=== PATIENT | male | born 1965 | race Two or more races ===

== ENCOUNTER 2017-09-21 07:08 | Day surgery (SDC) | payer MEDICAID ==
[2017-09-21] VITALS (8 sets, daily range): BP systolic 91–111; BP diastolic 46–71
[~2017-09-21] VITALS: Ht 190.5 cm; Wt 148.1 kg
[~2017-09-21 07:08] MED LIST: AMOX500C2 PO; FURO-150 PO; METO-292 PO; PANT-47 PO; POTA10TA36 PO; vitamin b1 PO
[2017-09-21] MEDS ORDERED: normal saline 1000ml 1,000 ML IV PRN (07:25)
[2017-09-21] MEDS: albumin (human) 25% 100 ML IV solution IV PRN ×2 (10:35→11:12)
== END 2017-09-21 11:30 | disposition home or self-care (01) ==
LOC: SSTAY O 07:08
PROVIDERS: ATTEND Radiology Vascular & Interventional Radiology
DX: R18.8 Other ascites (principal); Z88.8 Allergy status to other drugs, medicaments and biological substances; Z79.899 Other long term (current) drug therapy
CPT/HCPCS: 49083; A6258; J7030; P9047

== ENCOUNTER 2017-09-24 19:22 | Inpatient (IN) | payer MEDICAID ==
[~2017-09-24] VITALS: Ht 190.5 cm; Wt 118.4 kg
[~2017-09-24 19:22] MED LIST changes: -AMOX500C2 PO
[2017-09-24 22:48] LABS: BASOPHILS % (AUTO) 0.5 % (0-1); EOSINOPHILS # (AUTO) 0.5 X10'3 (0-0.9); EOSINOPHILS % (AUTO) 5.5 % (0-6); HEMATOCRIT 23.9 % (42.0-52.0); LYMPHOCYTES # (AUTO) 1.5 X10'3 (1.1-4.8); LYMPHOCYTES % (AUTO) 15.5 % (21-51); MEAN CORPUSCULAR HEMOGLOBIN 33.2 PG (27.0-31.0); MEAN CORPUSCULAR HGB CONC 33.6 % (33.0-36.5); MEAN CORPUSCULAR VOLUME 98.8 FL (78-98); MEAN PLATELET VOLUME 8.3 FL (7.4-10.4); MONOCYTES # (AUTO) 0.9 X10'3 (0-0.9); MONOCYTES % (AUTO) 9.1 % (2-12); NEUTROPHILS # (AUTO) 6.5 X10'3 (1.8-7.7); NEUTROPHILS % (AUTO) 69.4 % (42-75); PLATELET COUNT 164 X10'3 (140-440); RED BLOOD COUNT 2.42 X10'6 (4.70-6.10); RED CELL DISTRIBUTION WIDTH 15.5 % (11.5-14.5); WHITE BLOOD COUNT 9.4 X10'3 (4.5-11.0)
[2017-09-24 23:06] LABS: ALANINE AMINOTRANSFERASE 25 U/L (12-78); ALBUMIN/GLOBULIN RATIO 0.4 (1.1-1.5); ALKALINE PHOSPHATASE 216 IU/L (46-116); ANION GAP 9 (8-16); ASPARTATE AMINO TRANSFERASE 33 U/L (10-37); BILIRUBIN,TOTAL 1.8 MG/DL (0.1-1.0); BLOOD UREA NITROGEN 43 MG/DL (7-18); BUN/CREATININE RATIO 25.6 (5.4-32.0); CALCIUM 8.7 MG/DL (8.5-10.1); CHLORIDE 109 MMOL/L (99-107); CREATININE 1.68 MG/DL (0.60-1.10); GLUCOSE 289 MG/DL (70-104); LIPASE 330 U/L (73-393); SODIUM 139 MMOL/L (135-145); TOTAL CARBON DIOXIDE 21.3 MMOL/L (24-32); TOTAL PROTEIN 7.2 G/DL (6.4-8.2); eGFR 43 ML/MIN
[2017-09-25] VITALS (7 sets, daily range): BP systolic 101–138; BP diastolic 54–61
[2017-09-25] MEDS ORDERED: magnesium hydroxide 30ml (MOM) UD suspension PO PRN (00:15)
[2017-09-25] MEDS ORDERED: diphenhydrAMINE 50 mg/ml inj IV PRN (00:15)
[2017-09-25] MEDS ORDERED: acetaminophen 325mg tablet PO PRN (00:15)
[2017-09-25] MEDS ORDERED: HYDROcodone/acetaminophen 10/325mg tab PO PRN (00:15)
[2017-09-25] MEDS ORDERED: diphenhydrAMINE 25mg capsule PO PRN (00:15)
[2017-09-25] MEDS ORDERED: HYDROmorphone 1 mg/ml syringe IV PRN ×2 (00:15)
[2017-09-25] MEDS ORDERED: HYDROcodone/acetaminophen 5mg/325mg tablet PO PRN (00:15)
[2017-09-25] MEDS ORDERED: mag hydrox/Alum hydrox/simeth 30ml oral suspension PO PRN (00:15)
[2017-09-25] MEDS ORDERED: acetaminophen 650mg rectal suppository RC PRN (00:15)
[2017-09-25] MEDS ORDERED: bisacodyl 10mg suppository rectal RC PRN (00:15)
[2017-09-25] MEDS ORDERED: metoclopramide 5 mg/ml inj IV PRN (00:15)
[2017-09-25] MEDS ORDERED: ondansetron/PF 4mg/2ml inj IV PRN (00:15)
[2017-09-25] MEDS ORDERED: glucagon, human recombinant 1mg kit SUBCUT PRN (00:20)
[2017-09-25] MEDS ORDERED: dextrose 50%-water 50ml dispensing syringe IV PRN ×2 (00:20)
[2017-09-25] MEDS ORDERED: dextrose ORAL solution 15 GM/59 ML bottle PO PRN ×2 (00:20)
[2017-09-25] MEDS ORDERED: MESSAGE TO PHARMACY PO ONE (00:20)
[2017-09-25 02:46] LABS: CLARITY,URINE Clear (Clear); COLOR,URINE Yellow (Yellow); GLUCOSE, URINE 100 mg/dl (Neg); KETONES,URINE Negative (Neg); LEUKOCYTE ESTERASE ,URINE Trace (Neg); NITRITES, URINE Negative (Neg); OCCULT BLOOD,URINE Trace-Intact (Neg); PROTEIN,URINE Negative (Neg)
[2017-09-25 02:48] LABS: UA COLLECTION TYPE CLN CATCH MIDSTREAM
[2017-09-25 02:55] LABS: HYALINE CASTS 0-3 /LPF (NEGATIVE); MUCUS STRANDS FEW /LPF (Neg); SQUAMOUS EPITHELIAL CELL,UR FEW /LPF (FEW)
[2017-09-25 02:56] LABS: WBC,URINE 0-4 /HPF (0-4)
[2017-09-25 02:57] LABS: BACTERIA,URINE FEW /HPF (Neg)
[2017-09-25 07:10] LABS: INR 1.3 INR; PARTIAL THROMBOPLASTIN TIME 32 SECONDS (22-32); PROTHROMBIN TIME 13.6 SECONDS (9.0-12.0)
[2017-09-25] MEDS: heparin, porcine 5000 units/ml vial SQ SCH ×2 (07:26→19:16)
[2017-09-25] MEDS: docusate sod 100mg capsule PO SCH ×2 (07:27→19:16)
[2017-09-25] MEDS ORDERED: pantoprazole 40mg Tablet.DR PO SCH (07:30)
[2017-09-25 08:01] LABS: ALBUMIN 1.7 G/DL (3.4-5.0); ANION GAP 8 (8-16); BLOOD UREA NITROGEN 41 MG/DL (7-18); BUN/CREATININE RATIO 28.3 (5.4-32.0); CALCIUM 8.5 MG/DL (8.5-10.1); CHLORIDE 112 MMOL/L (99-107); CREATININE 1.45 MG/DL (0.60-1.10); GLUCOSE 188 MG/DL (70-104); MAGNESIUM 1.8 MG/DL (1.5-2.4); PHOSPHORUS 3.7 MG/DL (2.3-4.5); SODIUM 140 MMOL/L (135-145); TOTAL CARBON DIOXIDE 19.9 MMOL/L (24-32); eGFR 51 ML/MIN
[2017-09-25 08:58] LABS: HEMOGLOBIN A1C 6.9 % (4.5-6.2)
[2017-09-25] MEDS ORDERED: potassium Cl 40MEQ/NS 500ml 500 ML IV PRN ×2 (12:30)
[2017-09-25] MEDS ORDERED: magnesium Cl slow-release 64mg tablet PO PRN (12:30)
[2017-09-25] MEDS: K and/or MAG REPLACEMENT MC SCH (12:30)
[2017-09-25] MEDS ORDERED: magnesium 2GM in 50ml NS 50 ML IV PRN (12:30)
[2017-09-25] MEDS ORDERED: magnesium 4gm in 100ml NS 100 ML IV PRN (12:30)
[2017-09-25] MEDS ORDERED: potassium Cl 20 mEq SR tablet PO PRN ×2 (12:30)
[2017-09-25 12:45] LABS: ALBUMIN 1.6 G/DL (3.4-5.0); ANION GAP 6 (8-16); BLOOD UREA NITROGEN 39 MG/DL (7-18); BUN/CREATININE RATIO 29.1 (5.4-32.0); CALCIUM 8.3 MG/DL (8.5-10.1); CHLORIDE 111 MMOL/L (99-107); CREATININE 1.34 MG/DL (0.60-1.10); GLUCOSE 206 MG/DL (70-104); PHOSPHORUS 3.8 MG/DL (2.3-4.5); POTASSIUM 5.1 MMOL/L (3.5-5.1); SODIUM 139 MMOL/L (135-145); TOTAL CARBON DIOXIDE 21.6 MMOL/L (24-32); eGFR 56 ML/MIN
[2017-09-25] MEDS: albumin (human) 25% 100 ML IV solution IV SCH (13:53)
[2017-09-25] MEDS: furosemide 40mg/4ml inj IV SCH ×2 (13:54→19:16)
[2017-09-25] MEDS: fluconazole 100mg tablet PO SCH (13:54)
[2017-09-25] MEDS: metoclopramide 10mg tablet PO SCH (17:04)
[2017-09-25] MEDS: insulin Lispro (HumaLOG) vial - multi-dose SQ SCH (19:15)
[2017-09-25 19:39] LABS: ALBUMIN 2.2 G/DL (3.4-5.0); ANION GAP 8 (8-16); BLOOD UREA NITROGEN 36 MG/DL (7-18); BUN/CREATININE RATIO 26.3 (5.4-32.0); CALCIUM 8.6 MG/DL (8.5-10.1); CHLORIDE 109 MMOL/L (99-107); CREATININE 1.37 MG/DL (0.60-1.10); GLUCOSE 224 MG/DL (70-104); PHOSPHORUS 3.8 MG/DL (2.3-4.5); POTASSIUM 4.7 MMOL/L (3.5-5.1); SODIUM 137 MMOL/L (135-145); TOTAL CARBON DIOXIDE 20.2 MMOL/L (24-32); eGFR 54 ML/MIN
[2017-09-25] MEDS ORDERED: temazepam 15mg capsule PO PRN (21:00)
[2017-09-26] VITALS (13 sets, daily range): BP systolic 103–122; BP diastolic 54–71
[2017-09-26] MEDS: metoclopramide 10mg tablet PO SCH ×4 (00:13→23:54)
[2017-09-26 07:20] LABS: BASOPHILS # (AUTO) 0.1 X10'3 (0-0.2); BASOPHILS % (AUTO) 0.6 % (0-1); EOSINOPHILS # (AUTO) 0.5 X10'3 (0-0.9); EOSINOPHILS % (AUTO) 5.9 % (0-6); LYMPHOCYTES % (AUTO) 21.4 % (21-51); MEAN CORPUSCULAR HEMOGLOBIN 33.1 PG (27.0-31.0); MEAN CORPUSCULAR HGB CONC 33.3 % (33.0-36.5); MEAN CORPUSCULAR VOLUME 99.3 FL (78-98); MEAN PLATELET VOLUME 8.3 FL (7.4-10.4); MONOCYTES # (AUTO) 0.8 X10'3 (0-0.9); NEUTROPHILS # (AUTO) 5.8 X10'3 (1.8-7.7); NEUTROPHILS % (AUTO) 63.1 % (42-75); PLATELET COUNT 142 X10'3 (140-440); RED BLOOD COUNT 2.04 X10'6 (4.70-6.10); RED CELL DISTRIBUTION WIDTH 15.8 % (11.5-14.5); WHITE BLOOD COUNT 9.2 X10'3 (4.5-11.0)
[2017-09-26 07:24] LABS: HEMATOCRIT 20.2 % (42.0-52.0); HEMOGLOBIN 6.7 g/dl (14.0-17.9)
[2017-09-26 07:40] LABS: ALANINE AMINOTRANSFERASE 22 U/L (12-78); ALBUMIN/GLOBULIN RATIO 0.4 (1.1-1.5); ALKALINE PHOSPHATASE 179 IU/L (46-116); ANION GAP 8 (8-16); ASPARTATE AMINO TRANSFERASE 29 U/L (10-37); BILIRUBIN,TOTAL 2.2 MG/DL (0.1-1.0); BLOOD UREA NITROGEN 34 MG/DL (7-18); BUN/CREATININE RATIO 25.2 (5.4-32.0); CALCIUM 8.5 MG/DL (8.5-10.1); CHLORIDE 109 MMOL/L (99-107); CREATININE 1.35 MG/DL (0.60-1.10); GLUCOSE 162 MG/DL (70-104); MAGNESIUM 1.7 MG/DL (1.5-2.4); POTASSIUM 4.7 MMOL/L (3.5-5.1); SODIUM 138 MMOL/L (135-145); TOTAL CARBON DIOXIDE 21.1 MMOL/L (24-32); TOTAL PROTEIN 6.6 G/DL (6.4-8.2); eGFR 55 ML/MIN
[2017-09-26] MEDS: K and/or MAG REPLACEMENT MC SCH (07:48)
[2017-09-26] MEDS: furosemide 40mg/4ml inj IV SCH ×2 (07:56→19:36)
[2017-09-26] MEDS: heparin, porcine 5000 units/ml vial SQ SCH ×3 (07:57→19:37)
[2017-09-26] MEDS: fluconazole 100mg tablet PO SCH (07:57)
[2017-09-26] MEDS: docusate sod 100mg capsule PO SCH ×2 (08:00→19:36)
[2017-09-26] MEDS: albumin (human) 25% 100 ML IV solution IV SCH (08:05)
[2017-09-26] MEDS: pantoprazole 40mg Tablet.DR PO SCH (08:06)
[2017-09-26] MEDS: insulin Lispro (HumaLOG) vial - multi-dose SQ SCH ×3 (09:33→19:44)
[2017-09-27 05:00] VITALS: BP 108/41
[2017-09-27 06:24] LABS: BASOPHILS # (AUTO) 0.1 X10'3 (0-0.2); BASOPHILS % (AUTO) 0.9 % (0-1); EOSINOPHILS # (AUTO) 0.4 X10'3 (0-0.9); EOSINOPHILS % (AUTO) 4.5 % (0-6); HEMATOCRIT 23.4 % (42.0-52.0); LYMPHOCYTES # (AUTO) 2.1 X10'3 (1.1-4.8); LYMPHOCYTES % (AUTO) 21.1 % (21-51); MEAN CORPUSCULAR HEMOGLOBIN 32.8 PG (27.0-31.0); MEAN CORPUSCULAR HGB CONC 34.2 % (33.0-36.5); MEAN CORPUSCULAR VOLUME 95.9 FL (78-98); MONOCYTES # (AUTO) 0.9 X10'3 (0-0.9); MONOCYTES % (AUTO) 9.7 % (2-12); NEUTROPHILS # (AUTO) 6.2 X10'3 (1.8-7.7); NEUTROPHILS % (AUTO) 63.8 % (42-75); PLATELET COUNT 137 X10'3 (140-440); RED BLOOD COUNT 2.44 X10'6 (4.70-6.10); RED CELL DISTRIBUTION WIDTH 16.7 % (11.5-14.5); WHITE BLOOD COUNT 9.8 X10'3 (4.5-11.0)
[2017-09-27 07:14] LABS: ALANINE AMINOTRANSFERASE 16 U/L (12-78); ALBUMIN 2.2 G/DL (3.4-5.0); ALBUMIN/GLOBULIN RATIO 0.5 (1.1-1.5); ALKALINE PHOSPHATASE 162 IU/L (46-116); ANION GAP 7 (8-16); ASPARTATE AMINO TRANSFERASE 28 U/L (10-37); BILIRUBIN,TOTAL 3.1 MG/DL (0.1-1.0); BLOOD UREA NITROGEN 31 MG/DL (7-18); BUN/CREATININE RATIO 24.4 (5.4-32.0); CALCIUM 8.3 MG/DL (8.5-10.1); CHLORIDE 109 MMOL/L (99-107); CREATININE 1.27 MG/DL (0.60-1.10); GLUCOSE 155 MG/DL (70-104); MAGNESIUM 1.7 MG/DL (1.5-2.4); POTASSIUM 4.3 MMOL/L (3.5-5.1); SODIUM 138 MMOL/L (135-145); TOTAL PROTEIN 6.4 G/DL (6.4-8.2); eGFR 59 ML/MIN
[2017-09-27] MEDS: K and/or MAG REPLACEMENT MC SCH (07:24)
[2017-09-27] MEDS: metoclopramide 10mg tablet PO SCH ×2 (07:29→15:23)
[2017-09-27] MEDS: docusate sod 100mg capsule PO SCH ×2 (07:29→19:12)
[2017-09-27] MEDS: furosemide 40mg/4ml inj IV SCH ×2 (07:29→19:14)
[2017-09-27] MEDS: fluconazole 100mg tablet PO SCH (07:29)
[2017-09-27] MEDS: pantoprazole 40mg Tablet.DR PO SCH (07:29)
[2017-09-27] MEDS: heparin, porcine 5000 units/ml vial SQ SCH ×2 (07:31→19:14)
[2017-09-27] MEDS: insulin Lispro (HumaLOG) vial - multi-dose SQ SCH ×3 (09:31→19:11)
[2017-09-27 10:00] VITALS: BP 110/52
[2017-09-27 10:10] VITALS: BP 126/71
[2017-09-27 10:39] VITALS: BP 94/43
[2017-09-27 18:00] VITALS: BP 113/58
[2017-09-27 22:00] VITALS: BP 112/58
[2017-09-28] MEDS: metoclopramide 10mg tablet PO SCH ×3 (00:12→15:17)
[2017-09-28 04:05] LABS: OCCULT BLOOD STOOL NEGATIVE (Neg)
[2017-09-28 06:00] VITALS: BP 103/55
[2017-09-28 06:44] LABS: BASOPHILS # (AUTO) 0.1 X10'3 (0-0.2); BASOPHILS % (AUTO) 0.8 % (0-1); EOSINOPHILS # (AUTO) 0.4 X10'3 (0-0.9); EOSINOPHILS % (AUTO) 3.6 % (0-6); HEMATOCRIT 24.4 % (42.0-52.0); HEMOGLOBIN 8.2 g/dl (14.0-17.9); LYMPHOCYTES # (AUTO) 2.5 X10'3 (1.1-4.8); LYMPHOCYTES % (AUTO) 24.8 % (21-51); MEAN CORPUSCULAR HEMOGLOBIN 32.4 PG (27.0-31.0); MEAN CORPUSCULAR HGB CONC 33.5 % (33.0-36.5); MEAN CORPUSCULAR VOLUME 96.8 FL (78-98); MEAN PLATELET VOLUME 8.2 FL (7.4-10.4); MONOCYTES # (AUTO) 1.4 X10'3 (0-0.9); MONOCYTES % (AUTO) 13.8 % (2-12); NEUTROPHILS # (AUTO) 5.8 X10'3 (1.8-7.7); PLATELET COUNT 143 X10'3 (140-440); RED BLOOD COUNT 2.52 X10'6 (4.70-6.10); RED CELL DISTRIBUTION WIDTH 16.8 % (11.5-14.5); WHITE BLOOD COUNT 10.2 X10'3 (4.5-11.0)
[2017-09-28] MEDS: fluconazole 100mg tablet PO SCH (07:18)
[2017-09-28] MEDS: docusate sod 100mg capsule PO SCH (07:18)
[2017-09-28] MEDS: pantoprazole 40mg Tablet.DR PO SCH (07:18)
[2017-09-28] MEDS: heparin, porcine 5000 units/ml vial SQ SCH (07:19)
[2017-09-28] MEDS: furosemide 40mg/4ml inj IV SCH (07:19)
[2017-09-28] MEDS: K and/or MAG REPLACEMENT MC SCH (08:00)
[2017-09-28 08:13] LABS: ALANINE AMINOTRANSFERASE 20 U/L (12-78); ALBUMIN 1.9 G/DL (3.4-5.0); ALBUMIN/GLOBULIN RATIO 0.5 (1.1-1.5); ALKALINE PHOSPHATASE 152 IU/L (46-116); ANION GAP 9 (8-16); ASPARTATE AMINO TRANSFERASE 29 U/L (10-37); BILIRUBIN,TOTAL 2.4 MG/DL (0.1-1.0); BLOOD UREA NITROGEN 27 MG/DL (7-18); BUN/CREATININE RATIO 20.3 (5.4-32.0); CHLORIDE 109 MMOL/L (99-107); CREATININE 1.33 MG/DL (0.60-1.10); GLUCOSE 123 MG/DL (70-104); MAGNESIUM 1.5 MG/DL (1.5-2.4); SODIUM 139 MMOL/L (135-145); TOTAL CARBON DIOXIDE 21.5 MMOL/L (24-32); eGFR 56 ML/MIN
[2017-09-28] MEDS: insulin Lispro (HumaLOG) vial - multi-dose SQ SCH ×2 (08:59→13:25)
[2017-09-28 10:30] VITALS: BP 106/59
[2017-09-28] MEDS ORDERED: FURO40TA4 PO (16:12)
[2017-09-28] MEDS ORDERED: POTA20TA19 PO (16:12)
== END 2017-09-28 18:00 | disposition home or self-care (01) ==
LOC: ER 19:23 → ED HOLD 09-25 00:11 → EDBEDREQ 09-25 00:57 → ORTHO 4S 09-25 01:25
PROVIDERS: ADMIT Family Medicine; ATTEND Family Medicine
PROC: 30233N1 Transfusion of Nonautologous Red Blood Cells into Peripheral Vein, Percutaneous Approach (ICD-10-PCS; 2017-09-26)
PROC: 0W9G3ZZ Drainage of Peritoneal Cavity, Percutaneous Approach (ICD-10-PCS; principal; 2017-09-27)
DX: K74.60 Unspecified cirrhosis of liver (principal); E43 Unspecified severe protein-calorie malnutrition; N17.9 Acute kidney failure, unspecified; R18.8 Other ascites; E11.22 Type 2 diabetes mellitus with diabetic chronic kidney disease; K72.90 Hepatic failure, unspecified without coma; E88.09 Other disorders of plasma-protein metabolism, not elsewhere classified; E11.65 Type 2 diabetes mellitus with hyperglycemia; R60.1 Generalized edema; D64.9 Anemia, unspecified; L30.8 Other specified dermatitis; D63.1 Anemia in chronic kidney disease; F10.10 Alcohol abuse, uncomplicated; I12.9 Hypertensive chronic kidney disease with stage 1 through stage 4 chronic kidney disease, or unspecified chronic kidney disease; L30.9 Dermatitis, unspecified; N18.9 Chronic kidney disease, unspecified; N50.89 Other specified disorders of the male genital organs; Z59.0 Homelessness; Z87.891 Personal history of nicotine dependence; Z90.49 Acquired absence of other specified parts of digestive tract; Z88.8 Allergy status to other drugs, medicaments and biological substances
CPT/HCPCS: 36415; 49083; 76870; 80053; 80069; 81001; 82272; 82948; 83036; 83690; 83735; 83880; 85025; 85610; 85730; 86885; 86900; 86901; 86920; 87070; 87088; 97116; 97162; 97530; 99285; A4315; J1644; J1940; J2270; J7030; J8597; P9016; P9047

== ENCOUNTER 2017-10-05 07:23 | Day surgery (SDC) | payer MEDICAID ==
[~2017-10-05] VITALS: Ht 190.5 cm; Wt 145.8 kg
[2017-10-05] VITALS (9 sets, daily range): BP systolic 86–109; BP diastolic 36–64
[~2017-10-05 07:23] MED LIST changes: -FURO-150 PO; +FURO40TA4 PO; +LIDOcaine 1% 30ml vial SQ STA; +POTA20TA19 PO
[2017-10-05] MEDS ORDERED: normal saline 1000ml 1,000 ML IV PRN (07:40)
[2017-10-05] MEDS ORDERED: FURO40TA4 PO (08:23)
[2017-10-05] MEDS ORDERED: POTA10CA44 PO (08:23)
[2017-10-05] MEDS: albumin (human) 25% 100 ML IV solution IV PRN ×2 (09:13→09:53)
== END 2017-10-05 11:35 | disposition home or self-care (01) ==
LOC: SSTAY O 07:23
PROVIDERS: ATTEND Radiology Vascular & Interventional Radiology
DX: K74.69 Other cirrhosis of liver (principal); R18.8 Other ascites; Z79.899 Other long term (current) drug therapy; E11.9 Type 2 diabetes mellitus without complications; I10 Essential (primary) hypertension; Z90.49 Acquired absence of other specified parts of digestive tract; Z87.891 Personal history of nicotine dependence; Z88.1 Allergy status to other antibiotic agents
CPT/HCPCS: 49083; A6257; J3490; J7030; P9047

== ENCOUNTER 2017-10-11 07:54 | Day surgery (SDC) | payer MEDICAID ==
[~2017-10-11] VITALS: Ht 190.5 cm; Wt 146.1 kg
[2017-10-11] VITALS (8 sets, daily range): BP systolic 97–123; BP diastolic 43–69
[~2017-10-11 07:54] MED LIST changes: +POTA10CA44 PO; -POTA10TA36 PO; -POTA20TA19 PO; -vitamin b1 PO
[2017-10-11] MEDS ORDERED: normal saline 1000ml 1,000 ML IV PRN (08:40)
[2017-10-11] MEDS: albumin (human) 25% 100 ML IV solution IV PRN ×2 (09:00→09:23)
== END 2017-10-11 10:20 | disposition home or self-care (01) ==
LOC: SSTAY O 07:54
PROVIDERS: ATTEND Radiology Diagnostic Radiology
DX: K70.31 Alcoholic cirrhosis of liver with ascites (principal); E11.9 Type 2 diabetes mellitus without complications; I10 Essential (primary) hypertension; G89.29 Other chronic pain; F10.21 Alcohol dependence, in remission; F15.21 Other stimulant dependence, in remission; Z90.49 Acquired absence of other specified parts of digestive tract; Z87.891 Personal history of nicotine dependence; Z98.890 Other specified postprocedural states; Z79.84 Long term (current) use of oral hypoglycemic drugs; Z79.4 Long term (current) use of insulin; Z88.1 Allergy status to other antibiotic agents
CPT/HCPCS: 49083; A6257; J3490; J7030; P9047

== ENCOUNTER 2017-10-18 07:55 | Day surgery (SDC) | payer MEDICAID ==
[2017-10-18] VITALS (11 sets, daily range): BP systolic 99–115; BP diastolic 48–69
[~2017-10-18] VITALS: Ht 190.5 cm; Wt 142.2 kg
[~2017-10-18 07:55] MED LIST changes: -LIDOcaine 1% 30ml vial SQ STA
[2017-10-18] MEDS ORDERED: LIDOcaine 1% 30ml vial SQ STA (08:07)
[2017-10-18] MEDS ORDERED: normal saline 1000ml 1,000 ML IV PRN (08:25)
[2017-10-18] MEDS: albumin (human) 25% 100 ML IV solution IV PRN ×3 (08:33→09:41)
== END 2017-10-18 10:32 | disposition home or self-care (01) ==
LOC: SSTAY O 07:55
PROVIDERS: ATTEND Radiology Diagnostic Radiology
DX: K74.60 Unspecified cirrhosis of liver (principal); Z88.1 Allergy status to other antibiotic agents; I10 Essential (primary) hypertension; E11.9 Type 2 diabetes mellitus without complications; F10.21 Alcohol dependence, in remission; Z98.890 Other specified postprocedural states; Z87.891 Personal history of nicotine dependence; Z79.899 Other long term (current) drug therapy
CPT/HCPCS: 49083; A6257; J3490; J7030; P9047

== ENCOUNTER 2017-11-07 08:26 | Day surgery (SDC) | payer MEDICAID ==
[~2017-11-07] VITALS: Ht 190.5 cm; Wt 123.7 kg
[2017-11-07] VITALS (11 sets, daily range): BP systolic 92–134; BP diastolic 49–72
[2017-11-07] MEDS ORDERED: LIDOcaine 1% 30ml vial SQ ONE (08:45)
[2017-11-07] MEDS ORDERED: normal saline 1000ml 1,000 ML IV PRN (08:50)
[2017-11-07] MEDS: albumin (human) 25% 100 ML IV solution IV PRN ×2 (10:16→10:33)
== END 2017-11-07 11:20 | disposition home or self-care (01) ==
LOC: SSTAY O 08:26
PROVIDERS: ATTEND Radiology Diagnostic Radiology
DX: R18.8 Other ascites (principal); K74.60 Unspecified cirrhosis of liver; F10.21 Alcohol dependence, in remission; I10 Essential (primary) hypertension; G89.29 Other chronic pain; E11.42 Type 2 diabetes mellitus with diabetic polyneuropathy; F15.21 Other stimulant dependence, in remission; Z90.49 Acquired absence of other specified parts of digestive tract; Z88.3 Allergy status to other anti-infective agents; Z79.4 Long term (current) use of insulin; Z87.891 Personal history of nicotine dependence; Z98.890 Other specified postprocedural states; Z79.899 Other long term (current) drug therapy
CPT/HCPCS: 49083; A6257; J3490; J7030; P9047

== ENCOUNTER 2017-11-14 07:48 | Day surgery (SDC) | payer MEDICAID ==
[~2017-11-14] VITALS: Ht 190.5 cm; Wt 123.1 kg
[2017-11-14] VITALS (9 sets, daily range): BP systolic 74–137; BP diastolic 35–58
[2017-11-14] MEDS ORDERED: normal saline 1000ml 1,000 ML IV PRN (08:20)
[2017-11-14] MEDS ORDERED: albumin (human) 25% 100 ML IV solution IV PRN (08:20)
[2017-11-14] MEDS ORDERED: THIA100T70 PO (08:41)
[2017-11-14] MEDS ORDERED: GLYB5TAB7 PO ×2 (08:43→21:12)
[2017-11-14] MEDS ORDERED: FURO-150 PO (21:12)
[2017-11-14] MEDS ORDERED: ONDA4TAB9 SL (21:12)
[2017-11-14] MEDS ORDERED: POTA-82 PO (21:12)
[2017-11-14] MEDS ORDERED: AMOX500C2 PO (21:12)
== END 2017-11-14 10:50 | disposition home or self-care (01) ==
LOC: SSTAY O 07:48
PROVIDERS: ATTEND Radiology Diagnostic Radiology
DX: R18.8 Other ascites (principal); K74.60 Unspecified cirrhosis of liver; I10 Essential (primary) hypertension; Z88.1 Allergy status to other antibiotic agents; Z72.89 Other problems related to lifestyle; Z90.49 Acquired absence of other specified parts of digestive tract; Z87.891 Personal history of nicotine dependence; Z79.899 Other long term (current) drug therapy
CPT/HCPCS: 49083; 82948; A6257; J7030; P9047

== ENCOUNTER 2017-11-14 14:32 | Inpatient (IN) | payer MEDICAID ==
[~2017-11-14] VITALS: Ht 190.5 cm; Wt 123.1 kg
[2017-11-14] VITALS (8 sets, daily range): BP systolic 94–107; BP diastolic 46–60
[~2017-11-14 14:32] MED LIST changes: +GLYB5TAB7 PO; +THIA100T70 PO
[2017-11-14] MEDS ORDERED: normal saline 1000ML IV soln IVB ONE ×2 (15:25→21:45)
[2017-11-14 15:45] LABS: MEAN CORPUSCULAR HEMOGLOBIN 31.4 PG (27.0-31.0); MEAN CORPUSCULAR HGB CONC 33.4 % (33.0-36.5); MEAN PLATELET VOLUME 8.3 FL (7.4-10.4); PLATELET COUNT 147 X10'3 (140-440); RED BLOOD COUNT 2.14 X10'6 (4.70-6.10); WHITE BLOOD COUNT 21.9 X10'3 (4.5-11.0)
[2017-11-14 15:54] LABS: INR 1.5 INR; PROTHROMBIN TIME 15.4 SECONDS (9.0-12.0)
[2017-11-14 15:59] LABS: HEMATOCRIT 20.1 % (42.0-52.0); HEMOGLOBIN 6.7 g/dl (14.0-17.9)
[2017-11-14 16:00] LABS: ALANINE AMINOTRANSFERASE 13 U/L (12-78); ALBUMIN 1.8 G/DL (3.4-5.0); ALBUMIN/GLOBULIN RATIO 0.4 (1.1-1.5); ALKALINE PHOSPHATASE 233 IU/L (46-116); ANION GAP 13 (8-16); ASPARTATE AMINO TRANSFERASE 24 U/L (10-37); BILIRUBIN,TOTAL 1.3 MG/DL (0.1-1.0); BLOOD UREA NITROGEN 95 MG/DL (7-18); BUN/CREATININE RATIO 22.4 (5.4-32.0); CALCIUM 8.5 MG/DL (8.5-10.1); CHLORIDE 101 MMOL/L (99-107); CREATININE 4.25 MG/DL (0.60-1.10); ETHANOL < 0.010 GM/DL (0.0-0.010); GLUCOSE 193 MG/DL (70-104); SODIUM 131 MMOL/L (135-145); TOTAL CARBON DIOXIDE 17.3 MMOL/L (24-32); TOTAL PROTEIN 6.3 G/DL (6.4-8.2); eGFR 15 ML/MIN
[2017-11-14 16:02] LABS: POTASSIUM 7.3 MMOL/L (3.5-5.1)
[2017-11-14 16:11] LABS: PLATELET ESTIMATE NORMAL; TOTAL CELLS COUNTED 100
[2017-11-14 16:17] LABS: ANISOCYTOSIS 1+
[2017-11-14] MEDS ORDERED: calcium gluconate inj. 1 GM in normal saline 100ml IV soln 100 ML IV ONE (16:25)
[2017-11-14] MEDS ORDERED: sodium polystyrene sulfonate 15gm/60ml oral suspension PO ONE (16:25)
[2017-11-14] MEDS ORDERED: insulin regular, human 10 units/0.1 ml syringe IV ONE (16:25)
[2017-11-14] MEDS ORDERED: dextrose 50%-water 50ml dispensing syringe IV ONE (16:25)
[2017-11-14] MEDS ORDERED: lactulose 20gm/30ml cup PO ONE (16:25)
[2017-11-14 16:37] LABS: BURR CELLS 2+
[2017-11-14 16:43] LABS: TARGET CELLS FEW; TOXIC GRANULATION 1+; TOXIC VACUOLATION FEW
[2017-11-14 18:22] LABS: POTASSIUM 6.7 MMOL/L (3.5-5.1)
[2017-11-14 21:10] LABS: CLARITY,URINE CLEAR (Clear); COLOR,URINE YELLOW (Yellow); GLUCOSE, URINE NEGATIVE (Neg); KETONES,URINE TRACE mg/dl (Neg); LEUKOCYTE ESTERASE ,URINE NEGATIVE (Neg); NITRITES, URINE NEGATIVE (Neg); OCCULT BLOOD,URINE TRACE-INTACT (Neg); PROTEIN,URINE NEGATIVE (Neg); UROBILINOGEN,URINE 0.2 E.U/dL (0.2-1.0)
[2017-11-14 21:12] LABS: UA COLLECTION TYPE FOLEY CATH
[2017-11-14] MEDS ORDERED: FURO-150 PO (21:12)
[2017-11-14] MEDS ORDERED: ONDA4TAB9 SL (21:12)
[2017-11-14] MEDS ORDERED: AMOX500C2 PO (21:12)
[2017-11-14] MEDS ORDERED: POTA-82 PO (21:12)
[2017-11-14] MEDS ORDERED: GLYB5TAB7 PO (21:12)
[2017-11-14 21:20] LABS: AMORPHOUS URATES 1+; HYALINE CASTS 0-3 /LPF (NEGATIVE); MUCUS STRANDS FEW /LPF (Neg); RBC,URINE 0-2 /HPF (0-2); URINE AMPHETAMINE SCREEN NEGATIVE (Neg); URINE BARBITUATE SCREEN NEGATIVE (Neg); URINE BENZODIAZEPINES SCREEN NEGATIVE (Neg); URINE CANNABINOID SCREEN NEGATIVE (Neg); URINE COCAINE SCREEN NEGATIVE (Neg); URINE METHADONE SCREEN NEGATIVE (Neg); URINE OPIATE SCREEN NEGATIVE (Neg); URINE PHENCYCLIDINE SCREEN NEGATIVE (Neg); WBC,URINE 0-4 /HPF (0-4)
[2017-11-14 21:21] LABS: BACTERIA,URINE FEW /HPF (Neg)
[2017-11-14 21:22] LABS: SQUAMOUS EPITHELIAL CELL,UR NONE SEEN /LPF (FEW)
[2017-11-14] MEDS ORDERED: cefepime 2g/NS 100ml ADVANTAGE 100 ML IV SCH (21:24)
[2017-11-15] VITALS (7 sets, daily range): BP systolic 104–119; BP diastolic 48–56
[2017-11-15] MEDS ORDERED: lactulose 20gm/30ml cup PO ONE (01:20)
[2017-11-15] MEDS ORDERED: mag hydrox/Alum hydrox/simeth 30ml oral suspension PO PRN (02:05)
[2017-11-15] MEDS ORDERED: magnesium hydroxide 30ml (MOM) UD suspension PO PRN (02:05)
[2017-11-15] MEDS: ondansetron/PF 4mg/2ml inj IV PRN (03:08)
[2017-11-15 04:37] LABS: BASOPHILS # (AUTO) 0.1 X10'3 (0-0.2); BASOPHILS % (AUTO) 0.5 % (0-1); EOSINOPHILS % (AUTO) 0 % (0-6); HEMATOCRIT 23.4 % (42.0-52.0); HEMOGLOBIN 8.1 g/dl (14.0-17.9); LYMPHOCYTES # (AUTO) 1.8 X10'3 (1.1-4.8); LYMPHOCYTES % (AUTO) 9.2 % (21-51); MEAN CORPUSCULAR HEMOGLOBIN 30.7 PG (27.0-31.0); MEAN CORPUSCULAR HGB CONC 34.6 % (33.0-36.5); MEAN CORPUSCULAR VOLUME 88.6 FL (78-98); MEAN PLATELET VOLUME 8.1 FL (7.4-10.4); MONOCYTES # (AUTO) 2.2 X10'3 (0-0.9); NEUTROPHILS # (AUTO) 15.8 X10'3 (1.8-7.7); NEUTROPHILS % (AUTO) 79.3 % (42-75); PLATELET COUNT 149 X10'3 (140-440); RED BLOOD COUNT 2.64 X10'6 (4.70-6.10); RED CELL DISTRIBUTION WIDTH 18.7 % (11.5-14.5); WHITE BLOOD COUNT 19.9 X10'3 (4.5-11.0)
[2017-11-15 04:53] LABS: ALANINE AMINOTRANSFERASE 14 U/L (12-78); ALBUMIN 1.7 G/DL (3.4-5.0); ALBUMIN/GLOBULIN RATIO 0.4 (1.1-1.5); ALKALINE PHOSPHATASE 219 IU/L (46-116); ANION GAP 16 (8-16); ASPARTATE AMINO TRANSFERASE 21 U/L (10-37); BILIRUBIN,TOTAL 2.8 MG/DL (0.1-1.0); BLOOD UREA NITROGEN 91 MG/DL (7-18); BUN/CREATININE RATIO 25.1 (5.4-32.0); CHLORIDE 105 MMOL/L (99-107); CREATININE 3.62 MG/DL (0.60-1.10); GLUCOSE 157 MG/DL (70-104); POTASSIUM 5.9 MMOL/L (3.5-5.1); SODIUM 136 MMOL/L (135-145); TOTAL CARBON DIOXIDE 15.1 MMOL/L (24-32); eGFR 18 ML/MIN
[2017-11-15] MEDS: normal saline 1000ml 1,000 ML IV SCH ×2 (05:43→15:32)
[2017-11-15] MEDS: lactobacillus rhamnosus 10,000 MMU CELLS/CAPSULE PO SCH ×3 (07:30→17:18)
[2017-11-15] MEDS: lactulose 20gm/30ml cup PO SCH ×3 (08:49→21:19)
[2017-11-15] MEDS: cefepime 1GM/NS ADD-VANTAGE 100 ML IV SCH (08:50)
[2017-11-15] MEDS: albumin (human) 25% 100 ML IV solution IV SCH ×2 (08:51→16:00)
[2017-11-15] MEDS ORDERED: sodium polystyrene sulfonate 15gm/60ml oral suspension PO ONE (09:10)
[2017-11-15] MEDS ORDERED: albumin (human) 25% 100 ML IV solution IV SCH (17:28)
[2017-11-15 18:37] LABS: BASOPHILS # (AUTO) 0.1 X10'3 (0-0.2); BASOPHILS % (AUTO) 0.4 % (0-1); EOSINOPHILS # (AUTO) 0.1 X10'3 (0-0.9); EOSINOPHILS % (AUTO) 0.9 % (0-6); HEMOGLOBIN 7.6 g/dl (14.0-17.9); LYMPHOCYTES # (AUTO) 1.8 X10'3 (1.1-4.8); LYMPHOCYTES % (AUTO) 12.7 % (21-51); MEAN CORPUSCULAR HEMOGLOBIN 31.2 PG (27.0-31.0); MEAN CORPUSCULAR HGB CONC 35.1 % (33.0-36.5); MEAN CORPUSCULAR VOLUME 88.9 FL (78-98); MEAN PLATELET VOLUME 8.2 FL (7.4-10.4); MONOCYTES # (AUTO) 1.8 X10'3 (0-0.9); MONOCYTES % (AUTO) 12.7 % (2-12); NEUTROPHILS # (AUTO) 10.2 X10'3 (1.8-7.7); NEUTROPHILS % (AUTO) 73.3 % (42-75); PLATELET COUNT 129 X10'3 (140-440); RED BLOOD COUNT 2.44 X10'6 (4.70-6.10); RED CELL DISTRIBUTION WIDTH 17.2 % (11.5-14.5)
[2017-11-15 18:41] LABS: HEMATOCRIT 21.6 % (42.0-52.0)
[2017-11-15 19:08] LABS: SODIUM,URINE RANDOM < 15 MEQ/L
[2017-11-16] VITALS (13 sets, daily range): BP systolic 96–131; BP diastolic 49–68
[2017-11-16] MEDS: albumin (human) 25% 100 ML IV solution IV SCH ×2 (00:21→10:16)
[2017-11-16] MEDS: normal saline 1000ml 1,000 ML IV SCH (01:31)
[2017-11-16] MEDS: lactulose 20gm/30ml cup PO SCH ×4 (02:45→21:01)
[2017-11-16 04:05] LABS: OCCULT BLOOD STOOL NEGATIVE (Neg)
[2017-11-16 05:21] LABS: BASOPHILS # (AUTO) 0.1 X10'3 (0-0.2); BASOPHILS % (AUTO) 0.5 % (0-1); EOSINOPHILS # (AUTO) 0.2 X10'3 (0-0.9); HEMOGLOBIN 7.1 g/dl (14.0-17.9); LYMPHOCYTES # (AUTO) 1.8 X10'3 (1.1-4.8); LYMPHOCYTES % (AUTO) 18.1 % (21-51); MEAN CORPUSCULAR HEMOGLOBIN 30.5 PG (27.0-31.0); MEAN CORPUSCULAR HGB CONC 34.1 % (33.0-36.5); MEAN CORPUSCULAR VOLUME 89.6 FL (78-98); MEAN PLATELET VOLUME 7.8 FL (7.4-10.4); MONOCYTES # (AUTO) 1.4 X10'3 (0-0.9); MONOCYTES % (AUTO) 13.6 % (2-12); NEUTROPHILS # (AUTO) 6.7 X10'3 (1.8-7.7); NEUTROPHILS % (AUTO) 65.8 % (42-75); PLATELET COUNT 122 X10'3 (140-440); RED BLOOD COUNT 2.32 X10'6 (4.70-6.10); RED CELL DISTRIBUTION WIDTH 18.4 % (11.5-14.5); WHITE BLOOD COUNT 10.1 X10'3 (4.5-11.0)
[2017-11-16 05:48] LABS: HEMATOCRIT 20.8 % (42.0-52.0)
[2017-11-16 06:05] LABS: ALANINE AMINOTRANSFERASE 20 U/L (12-78); ALBUMIN 2.9 G/DL (3.4-5.0); ALBUMIN/GLOBULIN RATIO 0.8 (1.1-1.5); ALKALINE PHOSPHATASE 165 IU/L (46-116); ANION GAP 14 (8-16); ASPARTATE AMINO TRANSFERASE 21 U/L (10-37); BILIRUBIN,TOTAL 2.1 MG/DL (0.1-1.0); BLOOD UREA NITROGEN 73 MG/DL (7-18); BUN/CREATININE RATIO 28.2 (5.4-32.0); CALCIUM 8.6 MG/DL (8.5-10.1); CHLORIDE 109 MMOL/L (99-107); CREATININE 2.59 MG/DL (0.60-1.10); GLUCOSE 100 MG/DL (70-104); POTASSIUM 4.4 MMOL/L (3.5-5.1); SODIUM 141 MMOL/L (135-145); TOTAL CARBON DIOXIDE 17.6 MMOL/L (24-32); TOTAL PROTEIN 6.5 G/DL (6.4-8.2); eGFR 26 ML/MIN
[2017-11-16] MEDS: lactobacillus rhamnosus 10,000 MMU CELLS/CAPSULE PO SCH ×2 (07:30→17:30)
[2017-11-16] MEDS: cefepime 1GM/NS ADD-VANTAGE 100 ML IV SCH (10:50)
[2017-11-17] VITALS (24 sets, daily range): BP systolic 94–123; BP diastolic 42–75
[2017-11-17] MEDS: lactulose 20gm/30ml cup PO SCH ×4 (03:20→21:12)
[2017-11-17 05:19] LABS: BASOPHILS % (AUTO) 0.2 % (0-1); EOSINOPHILS # (AUTO) 0.2 X10'3 (0-0.9); EOSINOPHILS % (AUTO) 1.8 % (0-6); HEMATOCRIT 22.8 % (42.0-52.0); HEMOGLOBIN 7.7 g/dl (14.0-17.9); LYMPHOCYTES # (AUTO) 1.7 X10'3 (1.1-4.8); LYMPHOCYTES % (AUTO) 18.5 % (21-51); MEAN CORPUSCULAR HEMOGLOBIN 30.5 PG (27.0-31.0); MEAN CORPUSCULAR HGB CONC 33.8 % (33.0-36.5); MEAN CORPUSCULAR VOLUME 90.1 FL (78-98); MEAN PLATELET VOLUME 7.6 FL (7.4-10.4); MONOCYTES # (AUTO) 1.1 X10'3 (0-0.9); MONOCYTES % (AUTO) 12.3 % (2-12); NEUTROPHILS % (AUTO) 67.2 % (42-75); PLATELET COUNT 122 X10'3 (140-440); RED BLOOD COUNT 2.53 X10'6 (4.70-6.10); RED CELL DISTRIBUTION WIDTH 17.6 % (11.5-14.5); WHITE BLOOD COUNT 8.9 X10'3 (4.5-11.0)
[2017-11-17 06:32] LABS: ALANINE AMINOTRANSFERASE 20 U/L (12-78); ALBUMIN 2.8 G/DL (3.4-5.0); ALBUMIN/GLOBULIN RATIO 0.8 (1.1-1.5); ALKALINE PHOSPHATASE 157 IU/L (46-116); ANION GAP 11 (8-16); ASPARTATE AMINO TRANSFERASE 20 U/L (10-37); BILIRUBIN,TOTAL 2.6 MG/DL (0.1-1.0); BLOOD UREA NITROGEN 50 MG/DL (7-18); BUN/CREATININE RATIO 28.2 (5.4-32.0); CALCIUM 8.6 MG/DL (8.5-10.1); CHLORIDE 116 MMOL/L (99-107); CREATININE 1.77 MG/DL (0.60-1.10); GLUCOSE 108 MG/DL (70-104); SODIUM 148 MMOL/L (135-145); TOTAL CARBON DIOXIDE 20.8 MMOL/L (24-32); TOTAL PROTEIN 6.4 G/DL (6.4-8.2); eGFR 40 ML/MIN
[2017-11-17] MEDS: lactobacillus rhamnosus 10,000 MMU CELLS/CAPSULE PO SCH ×2 (07:30→17:18)
[2017-11-17] MEDS: cefepime 1GM/NS ADD-VANTAGE 100 ML IV SCH (07:30)
[2017-11-17 08:04] LABS: MAGNESIUM 1.8 MG/DL (1.5-2.4); PHOSPHORUS 3.6 MG/DL (2.3-4.5)
[2017-11-18] VITALS (24 sets, daily range): BP systolic 103–174; BP diastolic 56–88
[2017-11-18] MEDS: lactulose 20gm/30ml cup PO SCH ×4 (02:00→20:38)
[2017-11-18 05:22] LABS: BASOPHILS # (AUTO) 0.1 X10'3 (0-0.2); BASOPHILS % (AUTO) 1.4 % (0-1); EOSINOPHILS # (AUTO) 0.2 X10'3 (0-0.9); EOSINOPHILS % (AUTO) 2.1 % (0-6); LYMPHOCYTES # (AUTO) 2.2 X10'3 (1.1-4.8); LYMPHOCYTES % (AUTO) 22.3 % (21-51); MEAN CORPUSCULAR HEMOGLOBIN 31.4 PG (27.0-31.0); MEAN CORPUSCULAR HGB CONC 35.1 % (33.0-36.5); MEAN CORPUSCULAR VOLUME 89.6 FL (78-98); MEAN PLATELET VOLUME 7.5 FL (7.4-10.4); MONOCYTES # (AUTO) 1.1 X10'3 (0-0.9); NEUTROPHILS # (AUTO) 6.3 X10'3 (1.8-7.7); NEUTROPHILS % (AUTO) 63.2 % (42-75); PLATELET COUNT 127 X10'3 (140-440); RED BLOOD COUNT 2.32 X10'6 (4.70-6.10); RED CELL DISTRIBUTION WIDTH 17.4 % (11.5-14.5); WHITE BLOOD COUNT 9.9 X10'3 (4.5-11.0)
[2017-11-18 05:37] LABS: HEMATOCRIT 20.8 % (42.0-52.0); HEMOGLOBIN 7.3 g/dl (14.0-17.9)
[2017-11-18 06:03] LABS: ALANINE AMINOTRANSFERASE 19 U/L (12-78); ALBUMIN 2.5 G/DL (3.4-5.0); ALBUMIN/GLOBULIN RATIO 0.7 (1.1-1.5); ALKALINE PHOSPHATASE 154 IU/L (46-116); ANION GAP 13 (8-16); ASPARTATE AMINO TRANSFERASE 21 U/L (10-37); BILIRUBIN,TOTAL 2.4 MG/DL (0.1-1.0); BLOOD UREA NITROGEN 35 MG/DL (7-18); BUN/CREATININE RATIO 25.7 (5.4-32.0); CALCIUM 8.3 MG/DL (8.5-10.1); CHLORIDE 114 MMOL/L (99-107); CREATININE 1.36 MG/DL (0.60-1.10); GLUCOSE 118 MG/DL (70-104); POTASSIUM 3.1 MMOL/L (3.5-5.1); SODIUM 145 MMOL/L (135-145); TOTAL CARBON DIOXIDE 18.4 MMOL/L (24-32); TOTAL PROTEIN 6.3 G/DL (6.4-8.2); eGFR 55 ML/MIN
[2017-11-18] MEDS ORDERED: VANCOMYCIN LEVEL IV ONE (07:30)
[2017-11-18] MEDS: lactobacillus rhamnosus 10,000 MMU CELLS/CAPSULE PO SCH ×2 (08:59→17:42)
[2017-11-18] MEDS: cefepime 1GM/NS ADD-VANTAGE 100 ML IV SCH (08:59)
[2017-11-18] MEDS: K, MAG and/or Phos replacement - Verify level? MC SCH (14:10)
[2017-11-18] MEDS ORDERED: POTASSIUM 40MEQ/500ML NS ***PERIPHERAL LINE REPLACE IV PRN (14:15)
[2017-11-18] MEDS: potassium Cl 20 mEq SR tablet PO PRN ×2 (14:18→17:43)
[2017-11-18 20:48] LABS: HEMATOCRIT 23.2 % (42.0-52.0); HEMOGLOBIN 7.9 g/dl (14.0-17.9); MEAN CORPUSCULAR HEMOGLOBIN 30.6 PG (27.0-31.0); MEAN CORPUSCULAR HGB CONC 33.9 % (33.0-36.5); MEAN CORPUSCULAR VOLUME 90.3 FL (78-98); MEAN PLATELET VOLUME 7.5 FL (7.4-10.4); PLATELET COUNT 124 X10'3 (140-440); RED BLOOD COUNT 2.57 X10'6 (4.70-6.10); RED CELL DISTRIBUTION WIDTH 17.2 % (11.5-14.5); WHITE BLOOD COUNT 11.1 X10'3 (4.5-11.0)
[2017-11-19] VITALS (15 sets, daily range): BP systolic 103–121; BP diastolic 53–75
[2017-11-19] MEDS: lactulose 20gm/30ml cup PO SCH ×4 (03:14→20:12)
[2017-11-19 06:22] LABS: BASOPHILS % (AUTO) 0.4 % (0-1); EOSINOPHILS # (AUTO) 0.2 X10'3 (0-0.9); EOSINOPHILS % (AUTO) 2.1 % (0-6); HEMOGLOBIN 7.6 g/dl (14.0-17.9); LYMPHOCYTES # (AUTO) 2.3 X10'3 (1.1-4.8); LYMPHOCYTES % (AUTO) 19.7 % (21-51); MEAN CORPUSCULAR HEMOGLOBIN 31.5 PG (27.0-31.0); MEAN CORPUSCULAR HGB CONC 35.5 % (33.0-36.5); MEAN CORPUSCULAR VOLUME 88.7 FL (78-98); MEAN PLATELET VOLUME 7.6 FL (7.4-10.4); MONOCYTES # (AUTO) 1.3 X10'3 (0-0.9); MONOCYTES % (AUTO) 11.6 % (2-12); NEUTROPHILS # (AUTO) 7.6 X10'3 (1.8-7.7); NEUTROPHILS % (AUTO) 66.2 % (42-75); PLATELET COUNT 116 X10'3 (140-440); RED BLOOD COUNT 2.42 X10'6 (4.70-6.10); RED CELL DISTRIBUTION WIDTH 17.5 % (11.5-14.5); WHITE BLOOD COUNT 11.5 X10'3 (4.5-11.0)
[2017-11-19 06:43] LABS: ALANINE AMINOTRANSFERASE 19 U/L (12-78); ALBUMIN 2.4 G/DL (3.4-5.0); ALBUMIN/GLOBULIN RATIO 0.6 (1.1-1.5); ALKALINE PHOSPHATASE 152 IU/L (46-116); ANION GAP 13 (8-16); ASPARTATE AMINO TRANSFERASE 23 U/L (10-37); BILIRUBIN,TOTAL 1.8 MG/DL (0.1-1.0); BLOOD UREA NITROGEN 30 MG/DL (7-18); BUN/CREATININE RATIO 23.6 (5.4-32.0); CALCIUM 7.9 MG/DL (8.5-10.1); CHLORIDE 112 MMOL/L (99-107); CREATININE 1.27 MG/DL (0.60-1.10); GLUCOSE 150 MG/DL (70-104); SODIUM 144 MMOL/L (135-145); TOTAL CARBON DIOXIDE 18.9 MMOL/L (24-32); TOTAL PROTEIN 6.4 G/DL (6.4-8.2); eGFR 59 ML/MIN
[2017-11-19 06:53] LABS: HEMATOCRIT 21.4 % (42.0-52.0)
[2017-11-19] MEDS: K, MAG and/or Phos replacement - Verify level? MC SCH (07:56)
[2017-11-19] MEDS: lactobacillus rhamnosus 10,000 MMU CELLS/CAPSULE PO SCH ×2 (08:08→16:57)
[2017-11-19] MEDS: cefepime 1GM/NS ADD-VANTAGE 100 ML IV SCH (08:09)
[2017-11-19] MEDS: potassium Cl 20 mEq SR tablet PO PRN ×4 (08:09→22:40)
[2017-11-20] MEDS: lactulose 20gm/30ml cup PO SCH ×4 (02:11→20:00)
[2017-11-20 03:00] VITALS: BP 116/67
[2017-11-20 05:24] LABS: BASOPHILS # (AUTO) 0.1 X10'3 (0-0.2); BASOPHILS % (AUTO) 0.5 % (0-1); EOSINOPHILS # (AUTO) 0.3 X10'3 (0-0.9); EOSINOPHILS % (AUTO) 2.3 % (0-6); HEMATOCRIT 22.9 % (42.0-52.0); HEMOGLOBIN 7.6 g/dl (14.0-17.9); LYMPHOCYTES # (AUTO) 1.8 X10'3 (1.1-4.8); LYMPHOCYTES % (AUTO) 14.1 % (21-51); MEAN CORPUSCULAR HEMOGLOBIN 29.9 PG (27.0-31.0); MEAN CORPUSCULAR HGB CONC 33.1 % (33.0-36.5); MEAN CORPUSCULAR VOLUME 90.2 FL (78-98); MEAN PLATELET VOLUME 8.3 FL (7.4-10.4); MONOCYTES # (AUTO) 1.4 X10'3 (0-0.9); MONOCYTES % (AUTO) 11.1 % (2-12); PLATELET COUNT 92 X10'3 (140-440); RED BLOOD COUNT 2.54 X10'6 (4.70-6.10); RED CELL DISTRIBUTION WIDTH 17.5 % (11.5-14.5); WHITE BLOOD COUNT 12.5 X10'3 (4.5-11.0)
[2017-11-20 06:00] VITALS: BP 106/59
[2017-11-20 06:22] LABS: ALANINE AMINOTRANSFERASE 19 U/L (12-78); ALBUMIN 2.3 G/DL (3.4-5.0); ALBUMIN/GLOBULIN RATIO 0.5 (1.1-1.5); ALKALINE PHOSPHATASE 158 IU/L (46-116); ANION GAP 11 (8-16); BILIRUBIN,TOTAL 1.8 MG/DL (0.1-1.0); BLOOD UREA NITROGEN 26 MG/DL (7-18); BUN/CREATININE RATIO 21.5 (5.4-32.0); CALCIUM 7.8 MG/DL (8.5-10.1); CHLORIDE 115 MMOL/L (99-107); CREATININE 1.21 MG/DL (0.60-1.10); GLUCOSE 138 MG/DL (70-104); SODIUM 145 MMOL/L (135-145); TOTAL CARBON DIOXIDE 18.7 MMOL/L (24-32); TOTAL PROTEIN 6.5 G/DL (6.4-8.2); eGFR 62 ML/MIN
[2017-11-20 06:32] LABS: ASPARTATE AMINO TRANSFERASE 26 U/L (10-37); POTASSIUM 3.4 MMOL/L (3.5-5.1)
[2017-11-20] MEDS: lactobacillus rhamnosus 10,000 MMU CELLS/CAPSULE PO SCH ×2 (07:30→17:30)
[2017-11-20] MEDS: K, MAG and/or Phos replacement - Verify level? MC SCH (08:00)
[2017-11-20] MEDS: cefepime 1GM/NS ADD-VANTAGE 100 ML IV SCH ×2 (08:48→16:50)
[2017-11-20] MEDS ORDERED: LIDOcaine 1% 30ml vial 5 ML in potassium Cl 40MEQ/NS 500ml 500 ML IV ONE (08:50)
[2017-11-20 11:00] VITALS: BP 108/64
[2017-11-20 15:00] VITALS: BP 116/64
[2017-11-20 19:00] VITALS: BP 108/61
[2017-11-20 23:00] VITALS: BP 109/72
[2017-11-21] MEDS: cefepime 1GM/NS ADD-VANTAGE 100 ML IV SCH ×3 (00:19→15:41)
[2017-11-21] MEDS: lactulose 20gm/30ml cup PO SCH ×4 (01:49→19:36)
[2017-11-21 03:00] VITALS: BP 105/69
[2017-11-21 05:25] LABS: BASOPHILS % (AUTO) 0.4 % (0-1); EOSINOPHILS # (AUTO) 0.2 X10'3 (0-0.9); EOSINOPHILS % (AUTO) 2.3 % (0-6); HEMOGLOBIN 7.5 g/dl (14.0-17.9); LYMPHOCYTES # (AUTO) 1.8 X10'3 (1.1-4.8); LYMPHOCYTES % (AUTO) 17.5 % (21-51); MEAN CORPUSCULAR HEMOGLOBIN 30.8 PG (27.0-31.0); MEAN CORPUSCULAR HGB CONC 34.1 % (33.0-36.5); MEAN CORPUSCULAR VOLUME 90.4 FL (78-98); MEAN PLATELET VOLUME 7.9 FL (7.4-10.4); MONOCYTES % (AUTO) 10.4 % (2-12); NEUTROPHILS % (AUTO) 69.4 % (42-75); PLATELET COUNT 97 X10'3 (140-440); RED BLOOD COUNT 2.43 X10'6 (4.70-6.10); RED CELL DISTRIBUTION WIDTH 17.5 % (11.5-14.5)
[2017-11-21 05:39] LABS: ALANINE AMINOTRANSFERASE 18 U/L (12-78); ALBUMIN 2.2 G/DL (3.4-5.0); ALBUMIN/GLOBULIN RATIO 0.5 (1.1-1.5); ALKALINE PHOSPHATASE 160 IU/L (46-116); ANION GAP 11 (8-16); ASPARTATE AMINO TRANSFERASE 18 U/L (10-37); BILIRUBIN,TOTAL 1.8 MG/DL (0.1-1.0); BLOOD UREA NITROGEN 22 MG/DL (7-18); BUN/CREATININE RATIO 20.2 (5.4-32.0); CALCIUM 8.1 MG/DL (8.5-10.1); CHLORIDE 120 MMOL/L (99-107); CREATININE 1.09 MG/DL (0.60-1.10); GLUCOSE 101 MG/DL (70-104); POTASSIUM 3.1 MMOL/L (3.5-5.1); SODIUM 150 MMOL/L (135-145); TOTAL CARBON DIOXIDE 18.6 MMOL/L (24-32); TOTAL PROTEIN 6.6 G/DL (6.4-8.2); eGFR 70 ML/MIN
[2017-11-21 06:00] VITALS: BP 143/50
[2017-11-21] MEDS ORDERED: POTASSIUM 40MEQ/500ML NS ***PERIPHERAL LINE REPLACE IV PRN ×2 (06:40)
[2017-11-21] MEDS: lactobacillus rhamnosus 10,000 MMU CELLS/CAPSULE PO SCH ×2 (07:30→17:30)
[2017-11-21] MEDS: pantoprazole 40mg Tablet.DR PO SCH (07:30)
[2017-11-21] MEDS: K, MAG and/or Phos replacement - Verify level? MC SCH (08:00)
[2017-11-21 11:00] VITALS: BP 115/65
[2017-11-21 15:00] VITALS: BP 118/67
[2017-11-21 18:30] VITALS: BP 128/75
[2017-11-21] MEDS ORDERED: lactulose 20gm/30ml cup RC ONE (19:30)
[2017-11-21] MEDS ORDERED: normal saline 1000ml 1,000 ML IV SCH (19:30)
[2017-11-21 22:00] VITALS: BP 106/64
[2017-11-22] VITALS (10 sets, daily range): BP systolic 100–113; BP diastolic 49–81
[2017-11-22] MEDS: cefepime 1GM/NS ADD-VANTAGE 100 ML IV SCH ×3 (00:32→15:58)
[2017-11-22] MEDS: lactulose 20gm/30ml cup PO SCH ×4 (02:00→21:03)
[2017-11-22] MEDS ORDERED: dextrose ORAL solution 15 GM/59 ML bottle PO PRN (02:20)
[2017-11-22] MEDS ORDERED: glucagon, human recombinant 1mg kit SUBCUT PRN (02:20)
[2017-11-22] MEDS ORDERED: dextrose 50%-water 50ml dispensing syringe IV PRN ×2 (02:20)
[2017-11-22] MEDS ORDERED: MESSAGE TO PHARMACY PO ONE (02:20)
[2017-11-22] MEDS ORDERED: dextrose 50%-water 50ml dispensing syringe IV ONE (02:20)
[2017-11-22] MEDS: dextrose 5%-1/2 normal saline 1,000 ML IV SCH ×3 (02:47→22:20)
[2017-11-22] MEDS: lactobacillus rhamnosus 10,000 MMU CELLS/CAPSULE PO SCH ×2 (07:30→10:13)
[2017-11-22] MEDS: pantoprazole 40mg Tablet.DR PO SCH ×2 (07:30→10:13)
[2017-11-22 10:47] LABS: BASOPHILS # (AUTO) 0.1 X10'3 (0-0.2); BASOPHILS % (AUTO) 0.6 % (0-1); EOSINOPHILS # (AUTO) 0.2 X10'3 (0-0.9); EOSINOPHILS % (AUTO) 2.2 % (0-6); HEMOGLOBIN 7.5 g/dl (14.0-17.9); LYMPHOCYTES # (AUTO) 1.5 X10'3 (1.1-4.8); LYMPHOCYTES % (AUTO) 15.9 % (21-51); MEAN CORPUSCULAR HEMOGLOBIN 31.4 PG (27.0-31.0); MEAN CORPUSCULAR HGB CONC 34.2 % (33.0-36.5); MEAN CORPUSCULAR VOLUME 91.6 FL (78-98); MEAN PLATELET VOLUME 7.8 FL (7.4-10.4); MONOCYTES % (AUTO) 10.9 % (2-12); NEUTROPHILS # (AUTO) 6.5 X10'3 (1.8-7.7); NEUTROPHILS % (AUTO) 70.4 % (42-75); PLATELET COUNT 94 X10'3 (140-440); RED BLOOD COUNT 2.39 X10'6 (4.70-6.10); RED CELL DISTRIBUTION WIDTH 18.3 % (11.5-14.5); WHITE BLOOD COUNT 9.2 X10'3 (4.5-11.0)
[2017-11-22 10:54] LABS: ALBUMIN 2.1 G/DL (3.4-5.0); ANION GAP 11 (8-16); BLOOD UREA NITROGEN 19 MG/DL (7-18); BUN/CREATININE RATIO 18.1 (5.4-32.0); CHLORIDE 122 MMOL/L (99-107); CREATININE 1.05 MG/DL (0.60-1.10); GLUCOSE 116 MG/DL (70-104); MAGNESIUM 1.9 MG/DL (1.5-2.4); SODIUM 152 MMOL/L (135-145); eGFR 74 ML/MIN
[2017-11-22 10:56] LABS: HEMATOCRIT 21.9 % (42.0-52.0)
[2017-11-22] MEDS: K, MAG and/or Phos replacement - Verify level? MC SCH (12:45)
[2017-11-22] MEDS: dextrose 5%-water 1,000 ML IV SCH ×2 (13:15→22:20)
[2017-11-22] MEDS ORDERED: magnesium 4gm in 100ml NS 100 ML IV PRN (14:40)
[2017-11-22] MEDS ORDERED: potassium Cl 20 mEq SR tablet PO PRN (14:40)
[2017-11-22] MEDS ORDERED: magnesium 2GM in 50ml NS 50 ML IV PRN (14:40)
[2017-11-22] MEDS ORDERED: magnesium Cl slow-release 64mg tablet PO PRN (14:40)
[2017-11-22] MEDS ORDERED: potassium Cl 40MEQ/NS 500ml 500 ML IV PRN (14:40)
[2017-11-22] MEDS: insulin glargine (Lantus) pen - multi-dose SQ SCH (21:00)
[2017-11-22] MEDS: potassium Cl 40MEQ/NS 500ml 500 ML IV PRN (21:41)
[2017-11-22 22:52] LABS: HEMOGLOBIN 8.1 g/dl (14.0-17.9); MEAN CORPUSCULAR HEMOGLOBIN 30.7 PG (27.0-31.0); MEAN CORPUSCULAR HGB CONC 33.8 % (33.0-36.5); MEAN CORPUSCULAR VOLUME 90.8 FL (78-98); PLATELET COUNT 100 X10'3 (140-440); RED BLOOD COUNT 2.64 X10'6 (4.70-6.10); RED CELL DISTRIBUTION WIDTH 17.8 % (11.5-14.5); WHITE BLOOD COUNT 9.4 X10'3 (4.5-11.0)
[2017-11-23] MEDS: cefepime 1GM/NS ADD-VANTAGE 100 ML IV SCH ×2 (00:43→08:10)
[2017-11-23] MEDS: lactulose 20gm/30ml cup PO SCH ×4 (02:00→21:57)
[2017-11-23 03:00] VITALS: BP 105/61
[2017-11-23 06:00] VITALS: BP 108/64
[2017-11-23 07:20] LABS: MAGNESIUM 1.9 MG/DL (1.5-2.4); POTASSIUM 3.5 MMOL/L (3.5-5.1)
[2017-11-23] MEDS: K, MAG and/or Phos replacement - Verify level? MC SCH (08:00)
[2017-11-23] MEDS ORDERED: furosemide 20 MG/2 ML vial IV SCH (08:00)
[2017-11-23] MEDS: lactobacillus rhamnosus 10,000 MMU CELLS/CAPSULE PO SCH ×2 (08:10→21:57)
[2017-11-23] MEDS: dextrose 5%-water 1,000 ML IV SCH ×2 (08:11→17:38)
[2017-11-23] MEDS: pantoprazole 40mg Tablet.DR PO SCH (08:11)
[2017-11-23] MEDS: dextrose 5%-1/2 normal saline 1,000 ML IV SCH (08:11)
[2017-11-23] MEDS ORDERED: spironolactone 25 MG tablet PO SCH (08:30)
[2017-11-23 10:36] LABS: ALANINE AMINOTRANSFERASE 22 U/L (12-78); ALBUMIN 2.1 G/DL (3.4-5.0); ALBUMIN/GLOBULIN RATIO 0.4 (1.1-1.5); ALKALINE PHOSPHATASE 161 IU/L (46-116); ANION GAP 10 (8-16); ASPARTATE AMINO TRANSFERASE 21 U/L (10-37); BILIRUBIN,TOTAL 1.9 MG/DL (0.1-1.0); BLOOD UREA NITROGEN 17 MG/DL (7-18); BUN/CREATININE RATIO 15.7 (5.4-32.0); CALCIUM 7.8 MG/DL (8.5-10.1); CHLORIDE 121 MMOL/L (99-107); CREATININE 1.08 MG/DL (0.60-1.10); GLUCOSE 118 MG/DL (70-104); SODIUM 149 MMOL/L (135-145); TOTAL CARBON DIOXIDE 17.8 MMOL/L (24-32); TOTAL PROTEIN 6.8 G/DL (6.4-8.2); eGFR 71 ML/MIN
[2017-11-23 11:00] VITALS: BP 108/57
[2017-11-23 15:00] VITALS: BP 106/55
[2017-11-23] MEDS: acetaminophen 325mg tablet PO PRN (15:28)
[2017-11-23] MEDS: LIDOcaine 5% patch TP SCH (15:30)
[2017-11-23 19:00] VITALS: BP 112/59
[2017-11-23] MEDS: furosemide 20 MG/2 ML vial IV SCH (21:53)
[2017-11-23] MEDS: insulin glargine (Lantus) pen - multi-dose SQ SCH (22:00)
[2017-11-23 23:00] VITALS: BP 101/67
[2017-11-24] MEDS: dextrose 5%-water 1,000 ML IV SCH (02:51)
[2017-11-24] MEDS: lactulose 20gm/30ml cup PO SCH ×4 (02:53→20:27)
[2017-11-24 03:00] VITALS: BP 104/60
[2017-11-24 06:00] VITALS: BP 106/53
[2017-11-24 06:37] LABS: BASOPHILS % (AUTO) 0.5 % (0-1); EOSINOPHILS # (AUTO) 0.2 X10'3 (0-0.9); EOSINOPHILS % (AUTO) 2.4 % (0-6); HEMATOCRIT 22.3 % (42.0-52.0); HEMOGLOBIN 7.7 g/dl (14.0-17.9); LYMPHOCYTES # (AUTO) 2.1 X10'3 (1.1-4.8); LYMPHOCYTES % (AUTO) 22.5 % (21-51); MEAN CORPUSCULAR HEMOGLOBIN 30.9 PG (27.0-31.0); MEAN CORPUSCULAR HGB CONC 34.5 % (33.0-36.5); MEAN CORPUSCULAR VOLUME 89.7 FL (78-98); MEAN PLATELET VOLUME 8.2 FL (7.4-10.4); MONOCYTES % (AUTO) 10.7 % (2-12); NEUTROPHILS # (AUTO) 5.8 X10'3 (1.8-7.7); NEUTROPHILS % (AUTO) 63.9 % (42-75); PLATELET COUNT 85 X10'3 (140-440); RED BLOOD COUNT 2.49 X10'6 (4.70-6.10); WHITE BLOOD COUNT 9.1 X10'3 (4.5-11.0)
[2017-11-24 06:51] LABS: ANISOCYTOSIS 2+; PLATELET ESTIMATE DECREASED; POLYCHROMASIA 2+; TARGET CELLS FEW
[2017-11-24 06:52] LABS: ROULEAUX 1+
[2017-11-24 07:01] LABS: ALANINE AMINOTRANSFERASE 22 U/L (12-78); ALBUMIN/GLOBULIN RATIO 0.4 (1.1-1.5); ALKALINE PHOSPHATASE 167 IU/L (46-116); ANION GAP 11 (8-16); ASPARTATE AMINO TRANSFERASE 19 U/L (10-37); BILIRUBIN,TOTAL 1.9 MG/DL (0.1-1.0); BLOOD UREA NITROGEN 14 MG/DL (7-18); CALCIUM 7.6 MG/DL (8.5-10.1); CHLORIDE 116 MMOL/L (99-107); CREATININE 1.08 MG/DL (0.60-1.10); GLUCOSE 93 MG/DL (70-104); MAGNESIUM 1.6 MG/DL (1.5-2.4); SODIUM 145 MMOL/L (135-145); TOTAL CARBON DIOXIDE 18.4 MMOL/L (24-32); TOTAL PROTEIN 6.6 G/DL (6.4-8.2); eGFR 71 ML/MIN
[2017-11-24] MEDS: LIDOcaine 5% patch TP SCH (07:24)
[2017-11-24] MEDS: furosemide 20 MG/2 ML vial IV SCH ×3 (07:25→20:33)
[2017-11-24] MEDS: lactobacillus rhamnosus 10,000 MMU CELLS/CAPSULE PO SCH ×2 (07:25→20:27)
[2017-11-24] MEDS: pantoprazole 40mg Tablet.DR PO SCH (07:25)
[2017-11-24] MEDS: K, MAG and/or Phos replacement - Verify level? MC SCH (07:26)
[2017-11-24] MEDS: potassium Cl 40MEQ/NS 500ml 500 ML IV PRN (07:26)
[2017-11-24] MEDS ORDERED: albumin (human) 25% 100 ML IV solution IV ONE (09:05)
[2017-11-24] MEDS ORDERED: spironolactone 50 MG tablet PO ONE (10:00)
[2017-11-24 11:00] VITALS: BP 97/65
[2017-11-24] MEDS: potassium Cl 20 mEq SR tablet PO PRN (12:59)
[2017-11-24 13:41] LABS: ALBUMIN 2.5 G/DL (3.4-5.0); ANION GAP 9 (8-16); BLOOD UREA NITROGEN 13 MG/DL (7-18); BUN/CREATININE RATIO 12.9 (5.4-32.0); CALCIUM 7.8 MG/DL (8.5-10.1); CHLORIDE 115 MMOL/L (99-107); CREATININE 1.01 MG/DL (0.60-1.10); GLUCOSE 120 MG/DL (70-104); POTASSIUM 3.3 MMOL/L (3.5-5.1); SODIUM 143 MMOL/L (135-145); TOTAL CARBON DIOXIDE 18.8 MMOL/L (24-32); eGFR 77 ML/MIN
[2017-11-24 15:00] VITALS: BP 107/56
[2017-11-24 18:00] VITALS: BP 113/68
[2017-11-24] MEDS: insulin glargine (Lantus) pen - multi-dose SQ SCH (21:00)
[2017-11-24 22:00] VITALS: BP 115/63
[2017-11-24 22:23] LABS: ALBUMIN 2.4 G/DL (3.4-5.0); ANION GAP 13 (8-16); BLOOD UREA NITROGEN 13 MG/DL (7-18); BUN/CREATININE RATIO 13.1 (5.4-32.0); CALCIUM 7.7 MG/DL (8.5-10.1); CHLORIDE 113 MMOL/L (99-107); CREATININE 0.99 MG/DL (0.60-1.10); GLUCOSE 113 MG/DL (70-104); POTASSIUM 3.4 MMOL/L (3.5-5.1); SODIUM 144 MMOL/L (135-145); TOTAL CARBON DIOXIDE 17.9 MMOL/L (24-32); eGFR 79 ML/MIN
[2017-11-25] MEDS: potassium Cl 20 mEq SR tablet PO PRN (00:28)
[2017-11-25] MEDS: lactulose 20gm/30ml cup PO SCH ×4 (01:38→19:57)
[2017-11-25 02:00] VITALS: BP 112/61
[2017-11-25 06:00] VITALS: BP 116/65
[2017-11-25 06:33] LABS: MAGNESIUM 1.6 MG/DL (1.5-2.4); POTASSIUM 3.6 MMOL/L (3.5-5.1)
[2017-11-25] MEDS: pantoprazole 40mg Tablet.DR PO SCH (07:23)
[2017-11-25] MEDS: LIDOcaine 5% patch TP SCH (07:23)
[2017-11-25] MEDS: lactobacillus rhamnosus 10,000 MMU CELLS/CAPSULE PO SCH ×2 (07:23→19:57)
[2017-11-25] MEDS: furosemide 20 MG/2 ML vial IV SCH ×3 (07:24→19:58)
[2017-11-25] MEDS: K, MAG and/or Phos replacement - Verify level? MC SCH (08:00)
[2017-11-25] MEDS: spironolactone 25 MG tablet PO SCH (08:10)
[2017-11-25 11:00] VITALS: BP 134/60
[2017-11-25 12:44] LABS: ALANINE AMINOTRANSFERASE 12 U/L (12-78); ALBUMIN 2.2 G/DL (3.4-5.0); ALBUMIN/GLOBULIN RATIO 0.5 (1.1-1.5); ALKALINE PHOSPHATASE 181 IU/L (46-116); ANION GAP 9 (8-16); BILIRUBIN,TOTAL 1.8 MG/DL (0.1-1.0); BLOOD UREA NITROGEN 14 MG/DL (7-18); BUN/CREATININE RATIO 13.2 (5.4-32.0); CALCIUM 7.9 MG/DL (8.5-10.1); CHLORIDE 116 MMOL/L (99-107); CREATININE 1.06 MG/DL (0.60-1.10); GLUCOSE 114 MG/DL (70-104); SODIUM 142 MMOL/L (135-145); TOTAL CARBON DIOXIDE 16.7 MMOL/L (24-32); TOTAL PROTEIN 6.8 G/DL (6.4-8.2); eGFR 73 ML/MIN
[2017-11-25 12:45] LABS: ASPARTATE AMINO TRANSFERASE 23 U/L (10-37); POTASSIUM 4.3 MMOL/L (3.5-5.1)
[2017-11-25 14:32] LABS: BASOPHILS # (AUTO) 0.1 X10'3 (0-0.2); BASOPHILS % (AUTO) 0.9 % (0-1); EOSINOPHILS # (AUTO) 0.3 X10'3 (0-0.9); EOSINOPHILS % (AUTO) 2.3 % (0-6); HEMATOCRIT 22.6 % (42.0-52.0); HEMOGLOBIN 7.8 g/dl (14.0-17.9); LYMPHOCYTES # (AUTO) 1.8 X10'3 (1.1-4.8); LYMPHOCYTES % (AUTO) 16.6 % (21-51); MEAN CORPUSCULAR HEMOGLOBIN 31.2 PG (27.0-31.0); MEAN CORPUSCULAR HGB CONC 34.6 % (33.0-36.5); MEAN PLATELET VOLUME 8.2 FL (7.4-10.4); MONOCYTES # (AUTO) 1.1 X10'3 (0-0.9); MONOCYTES % (AUTO) 10.1 % (2-12); NEUTROPHILS # (AUTO) 7.5 X10'3 (1.8-7.7); NEUTROPHILS % (AUTO) 70.1 % (42-75); PLATELET COUNT 85 X10'3 (140-440); RED BLOOD COUNT 2.51 X10'6 (4.70-6.10); RED CELL DISTRIBUTION WIDTH 18.6 % (11.5-14.5); WHITE BLOOD COUNT 10.7 X10'3 (4.5-11.0)
[2017-11-25 15:00] VITALS: BP 105/63
[2017-11-25 18:00] VITALS: BP 126/61
[2017-11-25] MEDS: insulin glargine (Lantus) pen - multi-dose SQ SCH (21:00)
[2017-11-25 22:00] VITALS: BP 96/59
[2017-11-26] VITALS (7 sets, daily range): BP systolic 95–122; BP diastolic 39–66
[2017-11-26] MEDS: lactulose 20gm/30ml cup PO SCH ×4 (02:11→20:27)
[2017-11-26 05:44] LABS: BASOPHILS % (AUTO) 0.4 % (0-1); EOSINOPHILS # (AUTO) 0.3 X10'3 (0-0.9); EOSINOPHILS % (AUTO) 2.6 % (0-6); HEMOGLOBIN 7.3 g/dl (14.0-17.9); LYMPHOCYTES # (AUTO) 1.9 X10'3 (1.1-4.8); LYMPHOCYTES % (AUTO) 14.6 % (21-51); MEAN CORPUSCULAR HEMOGLOBIN 30.9 PG (27.0-31.0); MEAN CORPUSCULAR HGB CONC 33.8 % (33.0-36.5); MEAN CORPUSCULAR VOLUME 91.5 FL (78-98); MEAN PLATELET VOLUME 8.5 FL (7.4-10.4); MONOCYTES # (AUTO) 1.2 X10'3 (0-0.9); MONOCYTES % (AUTO) 9.7 % (2-12); NEUTROPHILS # (AUTO) 9.4 X10'3 (1.8-7.7); NEUTROPHILS % (AUTO) 72.7 % (42-75); PLATELET COUNT 78 X10'3 (140-440); RED BLOOD COUNT 2.34 X10'6 (4.70-6.10); RED CELL DISTRIBUTION WIDTH 18.7 % (11.5-14.5); WHITE BLOOD COUNT 12.9 X10'3 (4.5-11.0)
[2017-11-26 05:49] LABS: HEMATOCRIT 21.4 % (42.0-52.0)
[2017-11-26 05:58] LABS: ALANINE AMINOTRANSFERASE 18 U/L (12-78); ALBUMIN 2.1 G/DL (3.4-5.0); ALBUMIN/GLOBULIN RATIO 0.5 (1.1-1.5); ALKALINE PHOSPHATASE 175 IU/L (46-116); ANION GAP 12 (8-16); ASPARTATE AMINO TRANSFERASE 18 U/L (10-37); BILIRUBIN,TOTAL 1.5 MG/DL (0.1-1.0); BLOOD UREA NITROGEN 16 MG/DL (7-18); BUN/CREATININE RATIO 14.8 (5.4-32.0); CALCIUM 7.5 MG/DL (8.5-10.1); CHLORIDE 114 MMOL/L (99-107); CREATININE 1.08 MG/DL (0.60-1.10); GLUCOSE 120 MG/DL (70-104); MAGNESIUM 1.6 MG/DL (1.5-2.4); POTASSIUM 3.4 MMOL/L (3.5-5.1); SODIUM 143 MMOL/L (135-145); TOTAL CARBON DIOXIDE 16.8 MMOL/L (24-32); TOTAL PROTEIN 6.5 G/DL (6.4-8.2); eGFR 71 ML/MIN
[2017-11-26] MEDS: K, MAG and/or Phos replacement - Verify level? MC SCH (08:00)
[2017-11-26] MEDS: pantoprazole 40mg Tablet.DR PO SCH (08:03)
[2017-11-26] MEDS: spironolactone 25 MG tablet PO SCH (08:04)
[2017-11-26] MEDS: lactobacillus rhamnosus 10,000 MMU CELLS/CAPSULE PO SCH ×2 (08:04→20:26)
[2017-11-26] MEDS: furosemide 20 MG/2 ML vial IV SCH ×3 (08:04→20:30)
[2017-11-26] MEDS: LIDOcaine 5% patch TP SCH (08:05)
[2017-11-26] MEDS ORDERED: albumin (human) 25% 100 ML IV solution IV ONE (10:10)
[2017-11-26 11:13] LABS: INR 1.5 INR; PROTHROMBIN TIME 15.5 SECONDS (9.0-12.0)
[2017-11-26] MEDS ORDERED: magnesium Cl slow-release 64mg tablet PO PRN (12:50)
[2017-11-26] MEDS ORDERED: potassium Cl 20 mEq SR tablet PO PRN (12:50)
[2017-11-26] MEDS ORDERED: magnesium 2GM in 50ml NS 50 ML IV PRN (12:50)
[2017-11-26] MEDS ORDERED: magnesium 4gm in 100ml NS 100 ML IV PRN (12:50)
[2017-11-26] MEDS ORDERED: potassium Cl 40MEQ/NS 500ml 500 ML IV PRN ×2 (12:50)
[2017-11-26] MEDS: potassium Cl 20 mEq SR tablet PO PRN ×2 (12:58→17:20)
[2017-11-26] MEDS: insulin glargine (Lantus) pen - multi-dose SQ SCH (21:00)
[2017-11-27] MEDS: lactulose 20gm/30ml cup PO SCH ×4 (02:46→20:03)
[2017-11-27 04:45] VITALS: BP 95/56
[2017-11-27 05:35] LABS: BASOPHILS % (AUTO) 0.3 % (0-1); EOSINOPHILS # (AUTO) 0.3 X10'3 (0-0.9); EOSINOPHILS % (AUTO) 2.2 % (0-6); HEMOGLOBIN 7.4 g/dl (14.0-17.9); LYMPHOCYTES # (AUTO) 2.1 X10'3 (1.1-4.8); MEAN CORPUSCULAR HEMOGLOBIN 31.7 PG (27.0-31.0); MEAN CORPUSCULAR HGB CONC 34.9 % (33.0-36.5); MEAN CORPUSCULAR VOLUME 90.8 FL (78-98); MEAN PLATELET VOLUME 8.9 FL (7.4-10.4); MONOCYTES # (AUTO) 1.7 X10'3 (0-0.9); MONOCYTES % (AUTO) 10.3 % (2-12); NEUTROPHILS # (AUTO) 11.9 X10'3 (1.8-7.7); NEUTROPHILS % (AUTO) 74.2 % (42-75); PLATELET COUNT 76 X10'3 (140-440); RED BLOOD COUNT 2.34 X10'6 (4.70-6.10); RED CELL DISTRIBUTION WIDTH 18.5 % (11.5-14.5)
[2017-11-27 05:53] LABS: ALANINE AMINOTRANSFERASE 16 U/L (12-78); ALBUMIN 2.2 G/DL (3.4-5.0); ALBUMIN/GLOBULIN RATIO 0.5 (1.1-1.5); ALKALINE PHOSPHATASE 168 IU/L (46-116); ANION GAP 12 (8-16); ASPARTATE AMINO TRANSFERASE 14 U/L (10-37); BILIRUBIN,TOTAL 1.9 MG/DL (0.1-1.0); BLOOD UREA NITROGEN 19 MG/DL (7-18); BUN/CREATININE RATIO 16.7 (5.4-32.0); CALCIUM 7.5 MG/DL (8.5-10.1); CHLORIDE 113 MMOL/L (99-107); CREATININE 1.14 MG/DL (0.60-1.10); GLUCOSE 132 MG/DL (70-104); HEMATOCRIT 21.3 % (42.0-52.0); MAGNESIUM 1.5 MG/DL (1.5-2.4); POTASSIUM 3.5 MMOL/L (3.5-5.1); SODIUM 142 MMOL/L (135-145); TOTAL CARBON DIOXIDE 16.7 MMOL/L (24-32); TOTAL PROTEIN 6.4 G/DL (6.4-8.2); eGFR 67 ML/MIN
[2017-11-27 06:00] VITALS: BP 93/50
[2017-11-27] MEDS: furosemide 20 MG/2 ML vial IV SCH ×3 (07:45→20:05)
[2017-11-27] MEDS: spironolactone 25 MG tablet PO SCH (07:45)
[2017-11-27] MEDS: pantoprazole 40mg Tablet.DR PO SCH (07:47)
[2017-11-27] MEDS: lactobacillus rhamnosus 10,000 MMU CELLS/CAPSULE PO SCH ×2 (07:47→20:03)
[2017-11-27] MEDS: LIDOcaine 5% patch TP SCH (07:55)
[2017-11-27] MEDS: K, MAG and/or Phos replacement - Verify level? MC SCH (08:00)
[2017-11-27] MEDS ORDERED: LACT10SO32 PO (08:49)
[2017-11-27] MEDS ORDERED: RIFA550T PO (08:49)
[2017-11-27] MEDS ORDERED: SPIR25TA3 PO (08:49)
[2017-11-27 11:00] VITALS: BP 94/45
[2017-11-27 19:00] VITALS: BP 113/68
[2017-11-27] MEDS: insulin glargine (Lantus) pen - multi-dose SQ SCH (21:00)
[2017-11-27 23:00] VITALS: BP 109/58
[2017-11-28] MEDS: lactulose 20gm/30ml cup PO SCH ×4 (02:00→20:56)
[2017-11-28 03:00] VITALS: BP 113/59
[2017-11-28 06:00] VITALS: BP 103/57
[2017-11-28 06:17] LABS: BASOPHILS # (AUTO) 0.1 X10'3 (0-0.2); BASOPHILS % (AUTO) 0.5 % (0-1); EOSINOPHILS # (AUTO) 0.3 X10'3 (0-0.9); EOSINOPHILS % (AUTO) 2.4 % (0-6); HEMOGLOBIN 7.2 g/dl (14.0-17.9); LYMPHOCYTES # (AUTO) 1.9 X10'3 (1.1-4.8); LYMPHOCYTES % (AUTO) 14.2 % (21-51); MEAN CORPUSCULAR HEMOGLOBIN 31.3 PG (27.0-31.0); MEAN CORPUSCULAR HGB CONC 34.8 % (33.0-36.5); MEAN PLATELET VOLUME 8.7 FL (7.4-10.4); MONOCYTES # (AUTO) 1.7 X10'3 (0-0.9); MONOCYTES % (AUTO) 12.9 % (2-12); NEUTROPHILS # (AUTO) 9.3 X10'3 (1.8-7.7); PLATELET COUNT 82 X10'3 (140-440); RED BLOOD COUNT 2.28 X10'6 (4.70-6.10); RED CELL DISTRIBUTION WIDTH 19.4 % (11.5-14.5); WHITE BLOOD COUNT 13.3 X10'3 (4.5-11.0)
[2017-11-28 06:22] LABS: HEMATOCRIT 20.5 % (42.0-52.0)
[2017-11-28 06:30] LABS: ALANINE AMINOTRANSFERASE 17 U/L (12-78); ALBUMIN 1.9 G/DL (3.4-5.0); ALBUMIN/GLOBULIN RATIO 0.4 (1.1-1.5); ALKALINE PHOSPHATASE 170 IU/L (46-116); ANION GAP 10 (8-16); ASPARTATE AMINO TRANSFERASE 18 U/L (10-37); BILIRUBIN,TOTAL 1.4 MG/DL (0.1-1.0); BLOOD UREA NITROGEN 21 MG/DL (7-18); BUN/CREATININE RATIO 16.8 (5.4-32.0); CALCIUM 7.6 MG/DL (8.5-10.1); CHLORIDE 111 MMOL/L (99-107); CREATININE 1.25 MG/DL (0.60-1.10); GLUCOSE 139 MG/DL (70-104); POTASSIUM 3.6 MMOL/L (3.5-5.1); SODIUM 139 MMOL/L (135-145); TOTAL CARBON DIOXIDE 17.9 MMOL/L (24-32); TOTAL PROTEIN 6.3 G/DL (6.4-8.2); eGFR 60 ML/MIN
[2017-11-28] MEDS: K, MAG and/or Phos replacement - Verify level? MC SCH (08:00)
[2017-11-28] MEDS: furosemide 20 MG/2 ML vial IV SCH ×3 (08:00→20:56)
[2017-11-28] MEDS: spironolactone 25 MG tablet PO SCH (08:30)
[2017-11-28] MEDS: lactobacillus rhamnosus 10,000 MMU CELLS/CAPSULE PO SCH ×2 (08:40→20:57)
[2017-11-28] MEDS: pantoprazole 40mg Tablet.DR PO SCH (08:41)
[2017-11-28] MEDS: LIDOcaine 5% patch TP SCH (08:41)
[2017-11-28 11:00] VITALS: BP 92/46
[2017-11-28 15:00] VITALS: BP 100/62
[2017-11-28 18:00] VITALS: BP 107/53
[2017-11-28] MEDS: insulin glargine (Lantus) pen - multi-dose SQ SCH (21:00)
[2017-11-28] MEDS: acetaminophen 325mg tablet PO PRN (21:01)
[2017-11-28 22:00] VITALS: BP 107/60
[2017-11-28] MEDS: ondansetron/PF 4mg/2ml inj IV PRN (23:17)
[2017-11-29] VITALS (11 sets, daily range): BP systolic 91–110; BP diastolic 48–65
[2017-11-29] MEDS: lactulose 20gm/30ml cup PO SCH ×4 (03:17→20:37)
[2017-11-29 05:28] LABS: BASOPHILS # (AUTO) 0.1 X10'3 (0-0.2); BASOPHILS % (AUTO) 0.5 % (0-1); EOSINOPHILS # (AUTO) 0.3 X10'3 (0-0.9); EOSINOPHILS % (AUTO) 2.4 % (0-6); HEMOGLOBIN 7.1 g/dl (14.0-17.9); LYMPHOCYTES # (AUTO) 1.8 X10'3 (1.1-4.8); MEAN CORPUSCULAR HEMOGLOBIN 30.9 PG (27.0-31.0); MEAN CORPUSCULAR VOLUME 91.1 FL (78-98); MEAN PLATELET VOLUME 8.8 FL (7.4-10.4); MONOCYTES # (AUTO) 1.7 X10'3 (0-0.9); MONOCYTES % (AUTO) 14.5 % (2-12); NEUTROPHILS # (AUTO) 8.1 X10'3 (1.8-7.7); NEUTROPHILS % (AUTO) 67.6 % (42-75); PLATELET COUNT 88 X10'3 (140-440); RED CELL DISTRIBUTION WIDTH 19.6 % (11.5-14.5); WHITE BLOOD COUNT 11.9 X10'3 (4.5-11.0)
[2017-11-29 05:44] LABS: ALANINE AMINOTRANSFERASE 18 U/L (12-78); ALBUMIN 1.9 G/DL (3.4-5.0); ALBUMIN/GLOBULIN RATIO 0.4 (1.1-1.5); ALKALINE PHOSPHATASE 176 IU/L (46-116); ANION GAP 11 (8-16); ASPARTATE AMINO TRANSFERASE 19 U/L (10-37); BILIRUBIN,TOTAL 1.6 MG/DL (0.1-1.0); BLOOD UREA NITROGEN 28 MG/DL (7-18); BUN/CREATININE RATIO 22.6 (5.4-32.0); CALCIUM 7.6 MG/DL (8.5-10.1); CHLORIDE 108 MMOL/L (99-107); CREATININE 1.24 MG/DL (0.60-1.10); GLUCOSE 157 MG/DL (70-104); POTASSIUM 4.1 MMOL/L (3.5-5.1); SODIUM 137 MMOL/L (135-145); TOTAL CARBON DIOXIDE 18.1 MMOL/L (24-32); TOTAL PROTEIN 6.4 G/DL (6.4-8.2); eGFR 61 ML/MIN
[2017-11-29] MEDS: furosemide 20 MG/2 ML vial IV SCH ×3 (08:00→20:37)
[2017-11-29] MEDS: K, MAG and/or Phos replacement - Verify level? MC SCH (08:00)
[2017-11-29] MEDS: pantoprazole 40mg Tablet.DR PO SCH (08:49)
[2017-11-29] MEDS: lactobacillus rhamnosus 10,000 MMU CELLS/CAPSULE PO SCH ×2 (08:49→20:37)
[2017-11-29] MEDS: LIDOcaine 5% patch TP SCH (08:50)
[2017-11-29] MEDS: spironolactone 25 MG tablet PO SCH (08:51)
[2017-11-29 18:18] LABS: BASOPHILS # (AUTO) 0.1 X10'3 (0-0.2); BASOPHILS % (AUTO) 0.4 % (0-1); EOSINOPHILS # (AUTO) 0.3 X10'3 (0-0.9); EOSINOPHILS % (AUTO) 2.3 % (0-6); HEMATOCRIT 24.5 % (42.0-52.0); HEMOGLOBIN 8.4 g/dl (14.0-17.9); LYMPHOCYTES # (AUTO) 1.4 X10'3 (1.1-4.8); MEAN CORPUSCULAR HEMOGLOBIN 30.8 PG (27.0-31.0); MEAN CORPUSCULAR HGB CONC 34.2 % (33.0-36.5); MEAN PLATELET VOLUME 9.1 FL (7.4-10.4); MONOCYTES # (AUTO) 1.7 X10'3 (0-0.9); MONOCYTES % (AUTO) 14.3 % (2-12); NEUTROPHILS # (AUTO) 8.4 X10'3 (1.8-7.7); PLATELET COUNT 101 X10'3 (140-440); RED BLOOD COUNT 2.73 X10'6 (4.70-6.10); RED CELL DISTRIBUTION WIDTH 18.9 % (11.5-14.5); WHITE BLOOD COUNT 11.9 X10'3 (4.5-11.0)
[2017-11-29] MEDS: insulin Lispro (HumaLOG) vial - multi-dose SQ SCH (18:55)
[2017-11-29] MEDS: insulin glargine (Lantus) pen - multi-dose SQ SCH (20:54)
[2017-11-30] MEDS: lactulose 20gm/30ml cup PO SCH ×4 (01:17→19:06)
[2017-11-30 03:00] VITALS: BP 103/56
[2017-11-30 06:40] LABS: BASOPHILS # (AUTO) 0.1 X10'3 (0-0.2); BASOPHILS % (AUTO) 0.5 % (0-1); EOSINOPHILS # (AUTO) 0.2 X10'3 (0-0.9); EOSINOPHILS % (AUTO) 1.1 % (0-6); HEMATOCRIT 22.9 % (42.0-52.0); HEMOGLOBIN 7.9 g/dl (14.0-17.9); LYMPHOCYTES # (AUTO) 1.9 X10'3 (1.1-4.8); MEAN CORPUSCULAR HEMOGLOBIN 31.6 PG (27.0-31.0); MEAN CORPUSCULAR HGB CONC 34.4 % (33.0-36.5); MEAN CORPUSCULAR VOLUME 91.8 FL (78-98); MEAN PLATELET VOLUME 9.3 FL (7.4-10.4); MONOCYTES # (AUTO) 1.9 X10'3 (0-0.9); MONOCYTES % (AUTO) 14.4 % (2-12); NEUTROPHILS # (AUTO) 9.4 X10'3 (1.8-7.7); PLATELET COUNT 100 X10'3 (140-440); WHITE BLOOD COUNT 13.4 X10'3 (4.5-11.0)
[2017-11-30 06:46] VITALS: BP 98/56
[2017-11-30 07:04] LABS: ALANINE AMINOTRANSFERASE 19 U/L (12-78); ALBUMIN 1.8 G/DL (3.4-5.0); ALBUMIN/GLOBULIN RATIO 0.4 (1.1-1.5); ALKALINE PHOSPHATASE 193 IU/L (46-116); ANION GAP 13 (8-16); ASPARTATE AMINO TRANSFERASE 18 U/L (10-37); BILIRUBIN,TOTAL 1.8 MG/DL (0.1-1.0); BLOOD UREA NITROGEN 30 MG/DL (7-18); BUN/CREATININE RATIO 21.6 (5.4-32.0); CALCIUM 7.4 MG/DL (8.5-10.1); CHLORIDE 107 MMOL/L (99-107); CREATININE 1.39 MG/DL (0.60-1.10); GLUCOSE 152 MG/DL (70-104); POTASSIUM 4.1 MMOL/L (3.5-5.1); SODIUM 137 MMOL/L (135-145); TOTAL CARBON DIOXIDE 17.4 MMOL/L (24-32); TOTAL PROTEIN 6.4 G/DL (6.4-8.2); eGFR 53 ML/MIN
[2017-11-30] MEDS: K, MAG and/or Phos replacement - Verify level? MC SCH (08:00)
[2017-11-30] MEDS: furosemide 20 MG/2 ML vial IV SCH ×3 (08:35→21:45)
[2017-11-30] MEDS: spironolactone 25 MG tablet PO SCH (08:35)
[2017-11-30] MEDS: lactobacillus rhamnosus 10,000 MMU CELLS/CAPSULE PO SCH ×2 (08:35→19:06)
[2017-11-30] MEDS: pantoprazole 40mg Tablet.DR PO SCH (08:35)
[2017-11-30] MEDS: LIDOcaine 5% patch TP SCH (08:42)
[2017-11-30] MEDS: insulin Lispro (HumaLOG) vial - multi-dose SQ SCH ×3 (10:51→19:04)
[2017-11-30 11:00] VITALS: BP 109/55
[2017-11-30] MEDS: acetaminophen 325mg tablet PO PRN (14:47)
[2017-11-30 15:00] VITALS: BP 113/62
[2017-11-30 17:48] LABS: OCCULT BLOOD STOOL NEGATIVE (Neg)
[2017-11-30 19:00] VITALS: BP 94/53
[2017-11-30] MEDS: insulin glargine (Lantus) pen - multi-dose SQ SCH (21:48)
[2017-11-30 23:00] VITALS: BP 95/53
[2017-12-01] MEDS: lactulose 20gm/30ml cup PO SCH ×4 (02:14→19:06)
[2017-12-01 03:00] VITALS: BP 107/59
[2017-12-01 06:00] VITALS: BP 93/49
[2017-12-01 06:30] LABS: BASOPHILS # (AUTO) 0.1 X10'3 (0-0.2); BASOPHILS % (AUTO) 0.7 % (0-1); EOSINOPHILS # (AUTO) 0.3 X10'3 (0-0.9); HEMATOCRIT 22.5 % (42.0-52.0); HEMOGLOBIN 7.7 g/dl (14.0-17.9); LYMPHOCYTES # (AUTO) 1.7 X10'3 (1.1-4.8); LYMPHOCYTES % (AUTO) 11.4 % (21-51); MEAN CORPUSCULAR HEMOGLOBIN 31.5 PG (27.0-31.0); MEAN CORPUSCULAR HGB CONC 34.3 % (33.0-36.5); MEAN CORPUSCULAR VOLUME 91.7 FL (78-98); MEAN PLATELET VOLUME 9.5 FL (7.4-10.4); MONOCYTES # (AUTO) 1.7 X10'3 (0-0.9); MONOCYTES % (AUTO) 11.7 % (2-12); NEUTROPHILS # (AUTO) 10.9 X10'3 (1.8-7.7); NEUTROPHILS % (AUTO) 74.2 % (42-75); PLATELET COUNT 107 X10'3 (140-440); RED BLOOD COUNT 2.46 X10'6 (4.70-6.10); RED CELL DISTRIBUTION WIDTH 19.3 % (11.5-14.5); WHITE BLOOD COUNT 14.7 X10'3 (4.5-11.0)
[2017-12-01 06:50] LABS: ALANINE AMINOTRANSFERASE 19 U/L (12-78); ALBUMIN 1.7 G/DL (3.4-5.0); ALBUMIN/GLOBULIN RATIO 0.4 (1.1-1.5); ALKALINE PHOSPHATASE 208 IU/L (46-116); ANION GAP 9 (8-16); ASPARTATE AMINO TRANSFERASE 20 U/L (10-37); BILIRUBIN,TOTAL 1.3 MG/DL (0.1-1.0); BLOOD UREA NITROGEN 32 MG/DL (7-18); CALCIUM 7.6 MG/DL (8.5-10.1); CHLORIDE 107 MMOL/L (99-107); CREATININE 1.68 MG/DL (0.60-1.10); GLUCOSE 178 MG/DL (70-104); POTASSIUM 4.1 MMOL/L (3.5-5.1); SODIUM 134 MMOL/L (135-145); TOTAL CARBON DIOXIDE 17.9 MMOL/L (24-32); TOTAL PROTEIN 6.3 G/DL (6.4-8.2); eGFR 43 ML/MIN
[2017-12-01] MEDS: furosemide 20 MG/2 ML vial IV SCH ×3 (08:00→21:40)
[2017-12-01] MEDS: K, MAG and/or Phos replacement - Verify level? MC SCH (08:00)
[2017-12-01] MEDS: spironolactone 25 MG tablet PO SCH (08:30)
[2017-12-01] MEDS: pantoprazole 40mg Tablet.DR PO SCH (08:59)
[2017-12-01] MEDS: lactobacillus rhamnosus 10,000 MMU CELLS/CAPSULE PO SCH ×2 (08:59→19:06)
[2017-12-01] MEDS: LIDOcaine 5% patch TP SCH (09:00)
[2017-12-01] MEDS: insulin Lispro (HumaLOG) vial - multi-dose SQ SCH ×3 (09:32→19:10)
[2017-12-01 11:00] VITALS: BP 106/56
[2017-12-01 15:00] VITALS: BP 110/64
[2017-12-01 19:00] VITALS: BP 118/71
[2017-12-01] MEDS: insulin glargine (Lantus) pen - multi-dose SQ SCH (21:44)
[2017-12-01 23:00] VITALS: BP 105/59
[2017-12-02 03:00] VITALS: BP 116/55
[2017-12-02] MEDS: lactulose 20gm/30ml cup PO SCH ×4 (03:32→19:30)
[2017-12-02 05:28] LABS: BASOPHILS % (AUTO) 0.3 % (0-1); EOSINOPHILS # (AUTO) 0.3 X10'3 (0-0.9); EOSINOPHILS % (AUTO) 2.2 % (0-6); HEMATOCRIT 22.8 % (42.0-52.0); HEMOGLOBIN 7.8 g/dl (14.0-17.9); LYMPHOCYTES # (AUTO) 1.7 X10'3 (1.1-4.8); MEAN CORPUSCULAR HEMOGLOBIN 31.5 PG (27.0-31.0); MEAN CORPUSCULAR HGB CONC 34.4 % (33.0-36.5); MEAN CORPUSCULAR VOLUME 91.5 FL (78-98); MONOCYTES # (AUTO) 1.7 X10'3 (0-0.9); MONOCYTES % (AUTO) 13.4 % (2-12); NEUTROPHILS # (AUTO) 9.3 X10'3 (1.8-7.7); NEUTROPHILS % (AUTO) 71.1 % (42-75); PLATELET COUNT 112 X10'3 (140-440); RED BLOOD COUNT 2.49 X10'6 (4.70-6.10); RED CELL DISTRIBUTION WIDTH 19.3 % (11.5-14.5)
[2017-12-02 05:46] LABS: ALANINE AMINOTRANSFERASE 23 U/L (12-78); ALBUMIN 1.8 G/DL (3.4-5.0); ALBUMIN/GLOBULIN RATIO 0.4 (1.1-1.5); ALKALINE PHOSPHATASE 216 IU/L (46-116); ANION GAP 13 (8-16); ASPARTATE AMINO TRANSFERASE 24 U/L (10-37); BILIRUBIN,TOTAL 1.2 MG/DL (0.1-1.0); BLOOD UREA NITROGEN 33 MG/DL (7-18); BUN/CREATININE RATIO 23.1 (5.4-32.0); CALCIUM 7.7 MG/DL (8.5-10.1); CHLORIDE 106 MMOL/L (99-107); CREATININE 1.43 MG/DL (0.60-1.10); GLUCOSE 131 MG/DL (70-104); SODIUM 136 MMOL/L (135-145); TOTAL PROTEIN 6.4 G/DL (6.4-8.2); eGFR 52 ML/MIN
[2017-12-02 06:00] VITALS: BP 108/57
[2017-12-02] MEDS: furosemide 20 MG/2 ML vial IV SCH ×3 (08:00→21:27)
[2017-12-02] MEDS: K, MAG and/or Phos replacement - Verify level? MC SCH (08:00)
[2017-12-02] MEDS: lactobacillus rhamnosus 10,000 MMU CELLS/CAPSULE PO SCH ×2 (08:09→19:30)
[2017-12-02] MEDS: pantoprazole 40mg Tablet.DR PO SCH (08:10)
[2017-12-02] MEDS: insulin Lispro (HumaLOG) vial - multi-dose SQ SCH ×3 (08:12→19:28)
[2017-12-02] MEDS: spironolactone 25 MG tablet PO SCH (08:17)
[2017-12-02 11:00] VITALS: BP 98/56
[2017-12-02 15:00] VITALS: BP 96/47
[2017-12-02 19:00] VITALS: BP 118/61
[2017-12-02] MEDS: insulin glargine (Lantus) pen - multi-dose SQ SCH (21:27)
[2017-12-02 23:00] VITALS: BP 98/54
[2017-12-03] VITALS (7 sets, daily range): BP systolic 96–114; BP diastolic 55–70
[2017-12-03] MEDS: lactulose 20gm/30ml cup PO SCH ×4 (02:39→19:42)
[2017-12-03 06:06] LABS: BASOPHILS % (AUTO) 0.4 % (0-1); EOSINOPHILS # (AUTO) 0.3 X10'3 (0-0.9); EOSINOPHILS % (AUTO) 2.5 % (0-6); HEMATOCRIT 23.2 % (42.0-52.0); HEMOGLOBIN 7.9 g/dl (14.0-17.9); LYMPHOCYTES # (AUTO) 1.5 X10'3 (1.1-4.8); MEAN CORPUSCULAR HEMOGLOBIN 31.3 PG (27.0-31.0); MEAN CORPUSCULAR HGB CONC 34.2 % (33.0-36.5); MEAN CORPUSCULAR VOLUME 91.6 FL (78-98); MEAN PLATELET VOLUME 9.3 FL (7.4-10.4); MONOCYTES # (AUTO) 1.5 X10'3 (0-0.9); MONOCYTES % (AUTO) 13.4 % (2-12); NEUTROPHILS # (AUTO) 7.6 X10'3 (1.8-7.7); NEUTROPHILS % (AUTO) 69.7 % (42-75); PLATELET COUNT 126 X10'3 (140-440); RED BLOOD COUNT 2.54 X10'6 (4.70-6.10); WHITE BLOOD COUNT 10.9 X10'3 (4.5-11.0)
[2017-12-03 06:17] LABS: ALANINE AMINOTRANSFERASE 28 U/L (12-78); ALBUMIN 1.8 G/DL (3.4-5.0); ALBUMIN/GLOBULIN RATIO 0.4 (1.1-1.5); ALKALINE PHOSPHATASE 246 IU/L (46-116); ANION GAP 11 (8-16); ASPARTATE AMINO TRANSFERASE 30 U/L (10-37); BILIRUBIN,TOTAL 1.2 MG/DL (0.1-1.0); BLOOD UREA NITROGEN 29 MG/DL (7-18); BUN/CREATININE RATIO 21.6 (5.4-32.0); CALCIUM 7.7 MG/DL (8.5-10.1); CHLORIDE 106 MMOL/L (99-107); CREATININE 1.34 MG/DL (0.60-1.10); GLUCOSE 168 MG/DL (70-104); SODIUM 136 MMOL/L (135-145); TOTAL CARBON DIOXIDE 19.1 MMOL/L (24-32); TOTAL PROTEIN 6.6 G/DL (6.4-8.2); eGFR 56 ML/MIN
[2017-12-03] MEDS: lactobacillus rhamnosus 10,000 MMU CELLS/CAPSULE PO SCH ×2 (07:33→19:42)
[2017-12-03] MEDS: spironolactone 25 MG tablet PO SCH (07:33)
[2017-12-03] MEDS: pantoprazole 40mg Tablet.DR PO SCH (07:33)
[2017-12-03] MEDS: furosemide 20 MG/2 ML vial IV SCH ×3 (07:33→21:42)
[2017-12-03] MEDS: K, MAG and/or Phos replacement - Verify level? MC SCH (08:00)
[2017-12-03] MEDS: insulin Lispro (HumaLOG) vial - multi-dose SQ SCH ×3 (09:11→19:41)
[2017-12-03] MEDS: acetaminophen 325mg tablet PO PRN (18:00)
[2017-12-03] MEDS: insulin glargine (Lantus) pen - multi-dose SQ SCH (21:45)
[2017-12-04] VITALS: BP 95/44
[2017-12-04] MEDS: lactulose 20gm/30ml cup PO SCH ×4 (02:07→19:14)
[2017-12-04] MEDS: K, MAG and/or Phos replacement - Verify level? MC SCH (06:59)
[2017-12-04] MEDS: pantoprazole 40mg Tablet.DR PO SCH (07:08)
[2017-12-04] MEDS: lactobacillus rhamnosus 10,000 MMU CELLS/CAPSULE PO SCH ×2 (07:08→19:14)
[2017-12-04] MEDS: furosemide 20 MG/2 ML vial IV SCH ×3 (07:09→21:29)
[2017-12-04] MEDS: spironolactone 25 MG tablet PO SCH (07:09)
[2017-12-04 08:00] VITALS: BP 106/61
[2017-12-04] MEDS: insulin Lispro (HumaLOG) vial - multi-dose SQ SCH ×3 (08:25→19:13)
[2017-12-04 11:00] VITALS: BP 113/62
[2017-12-04 12:13] LABS: BASOPHILS % (AUTO) 0.5 % (0-1); EOSINOPHILS # (AUTO) 0.2 X10'3 (0-0.9); EOSINOPHILS % (AUTO) 2.8 % (0-6); HEMATOCRIT 23.3 % (42.0-52.0); HEMOGLOBIN 7.9 g/dl (14.0-17.9); LYMPHOCYTES # (AUTO) 1.5 X10'3 (1.1-4.8); LYMPHOCYTES % (AUTO) 17.1 % (21-51); MEAN CORPUSCULAR HEMOGLOBIN 31.2 PG (27.0-31.0); MEAN CORPUSCULAR HGB CONC 33.8 % (33.0-36.5); MEAN CORPUSCULAR VOLUME 92.3 FL (78-98); MEAN PLATELET VOLUME 8.5 FL (7.4-10.4); MONOCYTES # (AUTO) 1.3 X10'3 (0-0.9); MONOCYTES % (AUTO) 15.1 % (2-12); NEUTROPHILS # (AUTO) 5.5 X10'3 (1.8-7.7); NEUTROPHILS % (AUTO) 64.5 % (42-75); PLATELET COUNT 146 X10'3 (140-440); RED BLOOD COUNT 2.52 X10'6 (4.70-6.10); RED CELL DISTRIBUTION WIDTH 20.1 % (11.5-14.5); WHITE BLOOD COUNT 8.5 X10'3 (4.5-11.0)
[2017-12-04 12:24] LABS: ALANINE AMINOTRANSFERASE 25 U/L (12-78); ALBUMIN 1.8 G/DL (3.4-5.0); ALBUMIN/GLOBULIN RATIO 0.3 (1.1-1.5); ALKALINE PHOSPHATASE 254 IU/L (46-116); ANION GAP 8 (8-16); ASPARTATE AMINO TRANSFERASE 26 U/L (10-37); BILIRUBIN,TOTAL 1.2 MG/DL (0.1-1.0); BLOOD UREA NITROGEN 24 MG/DL (7-18); BUN/CREATININE RATIO 19.5 (5.4-32.0); CALCIUM 7.9 MG/DL (8.5-10.1); CHLORIDE 107 MMOL/L (99-107); CREATININE 1.23 MG/DL (0.60-1.10); GLUCOSE 101 MG/DL (70-104); POTASSIUM 4.2 MMOL/L (3.5-5.1); SODIUM 136 MMOL/L (135-145); TOTAL CARBON DIOXIDE 20.9 MMOL/L (24-32); eGFR 61 ML/MIN
[2017-12-04 18:00] VITALS: BP 111/68
[2017-12-04] MEDS: insulin glargine (Lantus) pen - multi-dose SQ SCH (21:29)
[2017-12-05] VITALS: BP 121/60
[2017-12-05] MEDS: lactulose 20gm/30ml cup PO SCH ×4 (02:03→19:28)
[2017-12-05] MEDS: acetaminophen 325mg tablet PO PRN (02:09)
[2017-12-05 07:00] VITALS: BP 104/60
[2017-12-05] MEDS: K, MAG and/or Phos replacement - Verify level? MC SCH (08:00)
[2017-12-05] MEDS: furosemide 20 MG/2 ML vial IV SCH ×3 (08:15→21:32)
[2017-12-05] MEDS: pantoprazole 40mg Tablet.DR PO SCH (08:55)
[2017-12-05] MEDS: lactobacillus rhamnosus 10,000 MMU CELLS/CAPSULE PO SCH ×2 (08:55→19:28)
[2017-12-05] MEDS: spironolactone 25 MG tablet PO SCH (08:57)
[2017-12-05] MEDS: insulin Lispro (HumaLOG) vial - multi-dose SQ SCH ×3 (09:05→19:29)
[2017-12-05 11:33] VITALS: BP 125/75
[2017-12-05 12:59] VITALS: BP 111/58
[2017-12-05 17:20] VITALS: BP 113/54
[2017-12-05 20:00] VITALS: BP 123/64
[2017-12-05] MEDS: insulin glargine (Lantus) pen - multi-dose SQ SCH (21:37)
[2017-12-06] VITALS: BP 113/63
[2017-12-06] MEDS: lactulose 20gm/30ml cup PO SCH ×4 (02:42→19:24)
[2017-12-06 07:00] VITALS: BP 121/64
[2017-12-06] MEDS: K, MAG and/or Phos replacement - Verify level? MC SCH (07:45)
[2017-12-06] MEDS: pantoprazole 40mg Tablet.DR PO SCH (07:54)
[2017-12-06] MEDS: spironolactone 25 MG tablet PO SCH (07:54)
[2017-12-06] MEDS: lactobacillus rhamnosus 10,000 MMU CELLS/CAPSULE PO SCH ×2 (07:54→19:25)
[2017-12-06] MEDS: furosemide 20 MG/2 ML vial IV SCH ×3 (07:54→21:18)
[2017-12-06] MEDS: insulin Lispro (HumaLOG) vial - multi-dose SQ SCH ×3 (10:49→19:24)
[2017-12-06 11:25] VITALS: BP 110/58
[2017-12-06 11:45] VITALS: BP 93/41
[2017-12-06 12:00] VITALS: BP 93/41
[2017-12-06 20:00] VITALS: BP 115/56
[2017-12-06] MEDS: insulin glargine (Lantus) pen - multi-dose SQ SCH (21:18)
[2017-12-07] VITALS: BP 146/56
[2017-12-07] MEDS: lactulose 20gm/30ml cup PO SCH ×4 (01:57→19:33)
[2017-12-07 05:53] LABS: HEMATOCRIT 22.5 % (42.0-52.0); HEMOGLOBIN 7.7 g/dl (14.0-17.9); MEAN CORPUSCULAR HEMOGLOBIN 31.2 PG (27.0-31.0); MEAN CORPUSCULAR VOLUME 91.9 FL (78-98); RED BLOOD COUNT 2.45 X10'6 (4.70-6.10); WHITE BLOOD COUNT 10.9 X10'3 (4.5-11.0)
[2017-12-07 05:54] LABS: BASOPHILS % (AUTO) 0.4 % (0-1); EOSINOPHILS # (AUTO) 0.3 X10'3 (0-0.9); EOSINOPHILS % (AUTO) 2.3 % (0-6); LYMPHOCYTES # (AUTO) 1.8 X10'3 (1.1-4.8); LYMPHOCYTES % (AUTO) 16.6 % (21-51); MEAN PLATELET VOLUME 8.1 FL (7.4-10.4); MONOCYTES # (AUTO) 1.3 X10'3 (0-0.9); MONOCYTES % (AUTO) 11.9 % (2-12); NEUTROPHILS # (AUTO) 7.5 X10'3 (1.8-7.7); NEUTROPHILS % (AUTO) 68.8 % (42-75); PLATELET COUNT 183 X10'3 (140-440)
[2017-12-07 06:10] LABS: ALANINE AMINOTRANSFERASE 25 U/L (12-78); ALBUMIN 1.7 G/DL (3.4-5.0); ALBUMIN/GLOBULIN RATIO 0.3 (1.1-1.5); ALKALINE PHOSPHATASE 251 IU/L (46-116); ANION GAP -1 (8-16); ASPARTATE AMINO TRANSFERASE 25 U/L (10-37); BILIRUBIN,TOTAL 1.4 MG/DL (0.1-1.0); BLOOD UREA NITROGEN 18 MG/DL (7-18); BUN/CREATININE RATIO 14.4 (5.4-32.0); CALCIUM 7.6 MG/DL (8.5-10.1); CHLORIDE 101 MMOL/L (99-107); CREATININE 1.25 MG/DL (0.60-1.10); GLUCOSE 99 MG/DL (70-104); POTASSIUM 3.7 MMOL/L (3.5-5.1); SODIUM 125 MMOL/L (135-145); TOTAL CARBON DIOXIDE 25.1 MMOL/L (24-32); TOTAL PROTEIN 6.8 G/DL (6.4-8.2); eGFR 60 ML/MIN
[2017-12-07 06:28] LABS: INR 1.5 INR; PROTHROMBIN TIME 14.8 SECONDS (9.0-12.0)
[2017-12-07 08:00] VITALS: BP 105/65
[2017-12-07] MEDS: K, MAG and/or Phos replacement - Verify level? MC SCH (08:00)
[2017-12-07] MEDS: lactobacillus rhamnosus 10,000 MMU CELLS/CAPSULE PO SCH ×2 (08:54→19:34)
[2017-12-07] MEDS: furosemide 20 MG/2 ML vial IV SCH (08:54)
[2017-12-07] MEDS: spironolactone 25 MG tablet PO SCH (08:55)
[2017-12-07] MEDS: pantoprazole 40mg Tablet.DR PO SCH (09:12)
[2017-12-07] MEDS: insulin Lispro (HumaLOG) vial - multi-dose SQ SCH ×2 (10:26→19:33)
[2017-12-07 11:00] VITALS: BP 106/60
[2017-12-07 16:25] LABS: ALBUMIN 1.7 G/DL (3.4-5.0); ANION GAP 7 (8-16); BLOOD UREA NITROGEN 18 MG/DL (7-18); BUN/CREATININE RATIO 14.3 (5.4-32.0); CALCIUM 8.1 MG/DL (8.5-10.1); CHLORIDE 104 MMOL/L (99-107); CREATININE 1.26 MG/DL (0.60-1.10); GLUCOSE 122 MG/DL (70-104); POTASSIUM 4.3 MMOL/L (3.5-5.1); SODIUM 136 MMOL/L (135-145); TOTAL CARBON DIOXIDE 24.9 MMOL/L (24-32); eGFR 60 ML/MIN
[2017-12-07 18:00] VITALS: BP 112/69
[2017-12-07] MEDS: insulin glargine (Lantus) pen - multi-dose SQ SCH (22:09)
[2017-12-08] VITALS: BP 103/64
[2017-12-08] MEDS: lactulose 20gm/30ml cup PO SCH ×4 (02:56→21:13)
[2017-12-08 06:52] VITALS: BP 109/56
[2017-12-08] MEDS: K, MAG and/or Phos replacement - Verify level? MC SCH (08:00)
[2017-12-08] MEDS: pantoprazole 40mg Tablet.DR PO SCH (08:18)
[2017-12-08] MEDS: lactobacillus rhamnosus 10,000 MMU CELLS/CAPSULE PO SCH ×2 (08:18→21:14)
[2017-12-08] MEDS: spironolactone 25 MG tablet PO SCH (08:18)
[2017-12-08] MEDS: insulin Lispro (HumaLOG) vial - multi-dose SQ SCH ×3 (09:58→19:10)
[2017-12-08 10:28] LABS: BASOPHILS % (AUTO) 0.4 % (0-1); EOSINOPHILS # (AUTO) 0.2 X10'3 (0-0.9); EOSINOPHILS % (AUTO) 2.4 % (0-6); HEMATOCRIT 22.6 % (42.0-52.0); HEMOGLOBIN 7.6 g/dl (14.0-17.9); LYMPHOCYTES # (AUTO) 1.5 X10'3 (1.1-4.8); LYMPHOCYTES % (AUTO) 15.6 % (21-51); MEAN CORPUSCULAR HEMOGLOBIN 31.1 PG (27.0-31.0); MEAN CORPUSCULAR HGB CONC 33.3 % (33.0-36.5); MEAN CORPUSCULAR VOLUME 93.2 FL (78-98); MONOCYTES # (AUTO) 1.3 X10'3 (0-0.9); MONOCYTES % (AUTO) 13.2 % (2-12); NEUTROPHILS # (AUTO) 6.6 X10'3 (1.8-7.7); NEUTROPHILS % (AUTO) 68.4 % (42-75); PLATELET COUNT 183 X10'3 (140-440); RED BLOOD COUNT 2.43 X10'6 (4.70-6.10); RED CELL DISTRIBUTION WIDTH 20.9 % (11.5-14.5); WHITE BLOOD COUNT 9.7 X10'3 (4.5-11.0)
[2017-12-08 10:45] LABS: ANISOCYTOSIS 3+; HYPOCHROMASIA 1+; PLATELET ESTIMATE NORMAL; POLYCHROMASIA 2+; ROULEAUX 1+
[2017-12-08 10:47] LABS: ALANINE AMINOTRANSFERASE 24 U/L (12-78); ALBUMIN 1.6 G/DL (3.4-5.0); ALBUMIN/GLOBULIN RATIO 0.3 (1.1-1.5); ALKALINE PHOSPHATASE 253 IU/L (46-116); ANION GAP 7 (8-16); ASPARTATE AMINO TRANSFERASE 23 U/L (10-37); BILIRUBIN,TOTAL 1.3 MG/DL (0.1-1.0); BLOOD UREA NITROGEN 17 MG/DL (7-18); BUN/CREATININE RATIO 13.3 (5.4-32.0); CALCIUM 7.7 MG/DL (8.5-10.1); CHLORIDE 105 MMOL/L (99-107); CREATININE 1.28 MG/DL (0.60-1.10); GLUCOSE 144 MG/DL (70-104); POTASSIUM 4.4 MMOL/L (3.5-5.1); SODIUM 137 MMOL/L (135-145); TOTAL CARBON DIOXIDE 25.5 MMOL/L (24-32); TOTAL PROTEIN 6.8 G/DL (6.4-8.2); eGFR 59 ML/MIN
[2017-12-08 11:05] VITALS: BP 101/56
[2017-12-08 19:00] VITALS: BP 134/68
[2017-12-08] MEDS: furosemide 20 MG/2 ML vial IV SCH (21:13)
[2017-12-08] MEDS: insulin glargine (Lantus) pen - multi-dose SQ SCH (21:27)
[2017-12-09] VITALS: BP 110/56
[2017-12-09] MEDS: lactulose 20gm/30ml cup PO SCH ×4 (02:01→20:40)
[2017-12-09 05:16] LABS: BASOPHILS % (AUTO) 0.3 % (0-1); EOSINOPHILS # (AUTO) 0.3 X10'3 (0-0.9); EOSINOPHILS % (AUTO) 2.3 % (0-6); HEMATOCRIT 23.1 % (42.0-52.0); HEMOGLOBIN 7.8 g/dl (14.0-17.9); LYMPHOCYTES # (AUTO) 1.8 X10'3 (1.1-4.8); LYMPHOCYTES % (AUTO) 15.8 % (21-51); MEAN CORPUSCULAR HEMOGLOBIN 31.2 PG (27.0-31.0); MEAN CORPUSCULAR HGB CONC 33.5 % (33.0-36.5); MEAN CORPUSCULAR VOLUME 93.2 FL (78-98); MEAN PLATELET VOLUME 8.1 FL (7.4-10.4); MONOCYTES # (AUTO) 1.4 X10'3 (0-0.9); MONOCYTES % (AUTO) 12.8 % (2-12); NEUTROPHILS # (AUTO) 7.6 X10'3 (1.8-7.7); NEUTROPHILS % (AUTO) 68.8 % (42-75); PLATELET COUNT 188 X10'3 (140-440); RED BLOOD COUNT 2.48 X10'6 (4.70-6.10); RED CELL DISTRIBUTION WIDTH 20.2 % (11.5-14.5); WHITE BLOOD COUNT 11.1 X10'3 (4.5-11.0)
[2017-12-09 06:19] LABS: ALANINE AMINOTRANSFERASE 23 U/L (12-78); ALBUMIN 1.7 G/DL (3.4-5.0); ALBUMIN/GLOBULIN RATIO 0.3 (1.1-1.5); ALKALINE PHOSPHATASE 259 IU/L (46-116); ANION GAP 9 (8-16); ASPARTATE AMINO TRANSFERASE 27 U/L (10-37); BILIRUBIN,TOTAL 1.4 MG/DL (0.1-1.0); BLOOD UREA NITROGEN 17 MG/DL (7-18); BUN/CREATININE RATIO 14.4 (5.4-32.0); CALCIUM 7.9 MG/DL (8.5-10.1); CHLORIDE 104 MMOL/L (99-107); CREATININE 1.18 MG/DL (0.60-1.10); GLUCOSE 105 MG/DL (70-104); POTASSIUM 4.4 MMOL/L (3.5-5.1); SODIUM 137 MMOL/L (135-145); TOTAL CARBON DIOXIDE 24.4 MMOL/L (24-32); eGFR 64 ML/MIN
[2017-12-09 07:48] VITALS: BP 104/58
[2017-12-09] MEDS: K, MAG and/or Phos replacement - Verify level? MC SCH (08:00)
[2017-12-09] MEDS: furosemide 20 MG/2 ML vial IV SCH ×3 (08:34→20:40)
[2017-12-09] MEDS: pantoprazole 40mg Tablet.DR PO SCH (08:45)
[2017-12-09] MEDS: lactobacillus rhamnosus 10,000 MMU CELLS/CAPSULE PO SCH ×2 (08:45→20:40)
[2017-12-09] MEDS: spironolactone 25 MG tablet PO SCH (08:45)
[2017-12-09] MEDS: insulin Lispro (HumaLOG) vial - multi-dose SQ SCH ×4 (09:46→19:08)
[2017-12-09 11:09] VITALS: BP 122/64
[2017-12-09 19:00] VITALS: BP 124/67
[2017-12-09] MEDS: insulin glargine (Lantus) pen - multi-dose SQ SCH (21:06)
[2017-12-10] VITALS: BP 106/64
[2017-12-10] MEDS: lactulose 20gm/30ml cup PO SCH ×4 (02:12→19:47)
[2017-12-10 05:34] LABS: BASOPHILS % (AUTO) 0.3 % (0-1); EOSINOPHILS # (AUTO) 0.3 X10'3 (0-0.9); EOSINOPHILS % (AUTO) 2.9 % (0-6); HEMOGLOBIN 7.6 g/dl (14.0-17.9); LYMPHOCYTES # (AUTO) 1.9 X10'3 (1.1-4.8); LYMPHOCYTES % (AUTO) 16.7 % (21-51); MEAN CORPUSCULAR HEMOGLOBIN 32.1 PG (27.0-31.0); MEAN CORPUSCULAR HGB CONC 34.5 % (33.0-36.5); MEAN PLATELET VOLUME 8.1 FL (7.4-10.4); MONOCYTES # (AUTO) 1.6 X10'3 (0-0.9); NEUTROPHILS # (AUTO) 7.7 X10'3 (1.8-7.7); NEUTROPHILS % (AUTO) 66.1 % (42-75); PLATELET COUNT 172 X10'3 (140-440); RED BLOOD COUNT 2.35 X10'6 (4.70-6.10); RED CELL DISTRIBUTION WIDTH 20.8 % (11.5-14.5); WHITE BLOOD COUNT 11.6 X10'3 (4.5-11.0)
[2017-12-10 05:39] LABS: HEMATOCRIT 21.9 % (42.0-52.0)
[2017-12-10 05:57] LABS: ALANINE AMINOTRANSFERASE 21 U/L (12-78); ALBUMIN 1.6 G/DL (3.4-5.0); ALBUMIN/GLOBULIN RATIO 0.3 (1.1-1.5); ALKALINE PHOSPHATASE 247 IU/L (46-116); ANION GAP 7 (8-16); ASPARTATE AMINO TRANSFERASE 26 U/L (10-37); BILIRUBIN,TOTAL 1.4 MG/DL (0.1-1.0); BLOOD UREA NITROGEN 15 MG/DL (7-18); BUN/CREATININE RATIO 12.8 (5.4-32.0); CALCIUM 7.8 MG/DL (8.5-10.1); CHLORIDE 102 MMOL/L (99-107); CREATININE 1.17 MG/DL (0.60-1.10); GLUCOSE 98 MG/DL (70-104); POTASSIUM 4.4 MMOL/L (3.5-5.1); SODIUM 135 MMOL/L (135-145); TOTAL CARBON DIOXIDE 25.9 MMOL/L (24-32); TOTAL PROTEIN 6.8 G/DL (6.4-8.2); eGFR 65 ML/MIN
[2017-12-10] MEDS: K, MAG and/or Phos replacement - Verify level? MC SCH (08:00)
[2017-12-10] MEDS: insulin Lispro (HumaLOG) vial - multi-dose SQ SCH ×3 (08:34→19:00)
[2017-12-10] MEDS: pantoprazole 40mg Tablet.DR PO SCH (08:35)
[2017-12-10] MEDS: furosemide 20 MG/2 ML vial IV SCH ×3 (08:35→21:00)
[2017-12-10] MEDS: spironolactone 25 MG tablet PO SCH (08:36)
[2017-12-10] MEDS: lactobacillus rhamnosus 10,000 MMU CELLS/CAPSULE PO SCH ×2 (08:36→19:47)
[2017-12-10 08:59] VITALS: BP 133/61
[2017-12-10 11:50] VITALS: BP 98/60
[2017-12-10 19:45] VITALS: BP 119/68
[2017-12-10] MEDS: insulin glargine (Lantus) pen - multi-dose SQ SCH (21:56)
[2017-12-10 23:35] VITALS: BP 106/57
[2017-12-11] VITALS (13 sets, daily range): BP systolic 108–126; BP diastolic 54–79
[2017-12-11] MEDS: lactulose 20gm/30ml cup PO SCH ×4 (01:58→20:01)
[2017-12-11 05:49] LABS: BASOPHILS % (AUTO) 0.3 % (0-1); EOSINOPHILS # (AUTO) 0.3 X10'3 (0-0.9); EOSINOPHILS % (AUTO) 2.3 % (0-6); HEMOGLOBIN 7.4 g/dl (14.0-17.9); MEAN CORPUSCULAR HEMOGLOBIN 31.3 PG (27.0-31.0); MEAN CORPUSCULAR HGB CONC 34.3 % (33.0-36.5); MEAN CORPUSCULAR VOLUME 91.1 FL (78-98); MEAN PLATELET VOLUME 8.1 FL (7.4-10.4); MONOCYTES # (AUTO) 1.6 X10'3 (0-0.9); NEUTROPHILS # (AUTO) 8.3 X10'3 (1.8-7.7); NEUTROPHILS % (AUTO) 68.4 % (42-75); PLATELET COUNT 178 X10'3 (140-440); RED BLOOD COUNT 2.35 X10'6 (4.70-6.10); RED CELL DISTRIBUTION WIDTH 20.9 % (11.5-14.5); WHITE BLOOD COUNT 12.2 X10'3 (4.5-11.0)
[2017-12-11 06:01] LABS: ALANINE AMINOTRANSFERASE 21 U/L (12-78); ALBUMIN 1.6 G/DL (3.4-5.0); ALBUMIN/GLOBULIN RATIO 0.3 (1.1-1.5); ALKALINE PHOSPHATASE 250 IU/L (46-116); ANION GAP 7 (8-16); ASPARTATE AMINO TRANSFERASE 24 U/L (10-37); BILIRUBIN,TOTAL 1.2 MG/DL (0.1-1.0); BLOOD UREA NITROGEN 18 MG/DL (7-18); BUN/CREATININE RATIO 12.6 (5.4-32.0); CALCIUM 7.7 MG/DL (8.5-10.1); CHLORIDE 102 MMOL/L (99-107); CREATININE 1.43 MG/DL (0.60-1.10); GLUCOSE 142 MG/DL (70-104); POTASSIUM 4.7 MMOL/L (3.5-5.1); SODIUM 135 MMOL/L (135-145); TOTAL CARBON DIOXIDE 26.2 MMOL/L (24-32); TOTAL PROTEIN 6.9 G/DL (6.4-8.2); eGFR 52 ML/MIN
[2017-12-11 06:19] LABS: HEMATOCRIT 21.4 % (42.0-52.0)
[2017-12-11] MEDS: furosemide 20 MG/2 ML vial IV SCH ×4 (07:17→21:00)
[2017-12-11] MEDS: spironolactone 25 MG tablet PO SCH (07:18)
[2017-12-11] MEDS: lactobacillus rhamnosus 10,000 MMU CELLS/CAPSULE PO SCH ×2 (07:25→20:01)
[2017-12-11] MEDS: pantoprazole 40mg Tablet.DR PO SCH (07:25)
[2017-12-11] MEDS: K, MAG and/or Phos replacement - Verify level? MC SCH (07:37)
[2017-12-11] MEDS: insulin Lispro (HumaLOG) vial - multi-dose SQ SCH ×2 (09:24→13:10)
[2017-12-11] MEDS ORDERED: lactulose 20gm/30ml cup PO ONE (13:05)
[2017-12-11] MEDS: furosemide 20 MG/2 ML vial IV ONE ×2 (15:05→20:02)
[2017-12-11] MEDS: insulin glargine (Lantus) pen - multi-dose SQ SCH (21:37)
[2017-12-12] MEDS: lactulose 20gm/30ml cup PO SCH ×4 (01:47→20:23)
[2017-12-12 05:30] LABS: BASOPHILS % (AUTO) 0.3 % (0-1); EOSINOPHILS # (AUTO) 0.4 X10'3 (0-0.9); EOSINOPHILS % (AUTO) 2.5 % (0-6); HEMATOCRIT 25.4 % (42.0-52.0); HEMOGLOBIN 8.8 g/dl (14.0-17.9); LYMPHOCYTES # (AUTO) 1.6 X10'3 (1.1-4.8); LYMPHOCYTES % (AUTO) 10.8 % (21-51); MEAN CORPUSCULAR HEMOGLOBIN 31.4 PG (27.0-31.0); MEAN CORPUSCULAR HGB CONC 34.6 % (33.0-36.5); MEAN CORPUSCULAR VOLUME 90.9 FL (78-98); MEAN PLATELET VOLUME 8.1 FL (7.4-10.4); MONOCYTES # (AUTO) 1.8 X10'3 (0-0.9); MONOCYTES % (AUTO) 11.9 % (2-12); NEUTROPHILS # (AUTO) 11.1 X10'3 (1.8-7.7); NEUTROPHILS % (AUTO) 74.5 % (42-75); PLATELET COUNT 180 X10'3 (140-440); RED CELL DISTRIBUTION WIDTH 19.2 % (11.5-14.5); WHITE BLOOD COUNT 14.9 X10'3 (4.5-11.0)
[2017-12-12 05:57] LABS: ALANINE AMINOTRANSFERASE 26 U/L (12-78); ALBUMIN 1.7 G/DL (3.4-5.0); ALBUMIN/GLOBULIN RATIO 0.3 (1.1-1.5); ALKALINE PHOSPHATASE 273 IU/L (46-116); ANION GAP 6 (8-16); ASPARTATE AMINO TRANSFERASE 29 U/L (10-37); BILIRUBIN,TOTAL 2.5 MG/DL (0.1-1.0); BLOOD UREA NITROGEN 19 MG/DL (7-18); BUN/CREATININE RATIO 14.4 (5.4-32.0); CALCIUM 7.9 MG/DL (8.5-10.1); CHLORIDE 102 MMOL/L (99-107); CREATININE 1.32 MG/DL (0.60-1.10); GLUCOSE 124 MG/DL (70-104); POTASSIUM 4.6 MMOL/L (3.5-5.1); SODIUM 136 MMOL/L (135-145); TOTAL CARBON DIOXIDE 28.1 MMOL/L (24-32); TOTAL PROTEIN 7.2 G/DL (6.4-8.2); eGFR 57 ML/MIN
[2017-12-12 07:00] VITALS: BP 131/62
[2017-12-12] MEDS: lactobacillus rhamnosus 10,000 MMU CELLS/CAPSULE PO SCH ×2 (07:46→20:23)
[2017-12-12] MEDS: furosemide 20 MG/2 ML vial IV SCH ×3 (07:46→20:34)
[2017-12-12] MEDS: spironolactone 25 MG tablet PO SCH (07:46)
[2017-12-12] MEDS: pantoprazole 40mg Tablet.DR PO SCH (07:46)
[2017-12-12] MEDS: K, MAG and/or Phos replacement - Verify level? MC SCH (08:00)
[2017-12-12 11:23] VITALS: BP 110/66
[2017-12-12] MEDS: insulin Lispro (HumaLOG) vial - multi-dose SQ SCH ×2 (14:09→20:21)
[2017-12-12 16:42] LABS: CLARITY,URINE CLEAR (Clear); COLOR,URINE YELLOW (Yellow); GLUCOSE, URINE NEGATIVE (Neg); KETONES,URINE NEGATIVE (Neg); LEUKOCYTE ESTERASE ,URINE NEGATIVE (Neg); NITRITES, URINE NEGATIVE (Neg); OCCULT BLOOD,URINE NEGATIVE (Neg); PROTEIN,URINE NEGATIVE (Neg)
[2017-12-12 17:07] LABS: UA COLLECTION TYPE VOIDED
[2017-12-12 20:00] VITALS: BP 110/59
[2017-12-12] MEDS: insulin glargine (Lantus) pen - multi-dose SQ SCH (23:28)
[2017-12-13] VITALS: BP 108/69
[2017-12-13] MEDS: lactulose 20gm/30ml cup PO SCH ×4 (03:01→20:29)
[2017-12-13 05:56] LABS: BASOPHILS % (AUTO) 0.4 % (0-1); EOSINOPHILS # (AUTO) 0.2 X10'3 (0-0.9); EOSINOPHILS % (AUTO) 1.9 % (0-6); HEMATOCRIT 26.3 % (42.0-52.0); HEMOGLOBIN 8.9 g/dl (14.0-17.9); LYMPHOCYTES # (AUTO) 1.7 X10'3 (1.1-4.8); LYMPHOCYTES % (AUTO) 13.7 % (21-51); MEAN CORPUSCULAR HEMOGLOBIN 31.3 PG (27.0-31.0); MEAN PLATELET VOLUME 8.3 FL (7.4-10.4); MONOCYTES # (AUTO) 1.4 X10'3 (0-0.9); MONOCYTES % (AUTO) 11.4 % (2-12); NEUTROPHILS % (AUTO) 72.6 % (42-75); PLATELET COUNT 175 X10'3 (140-440); RED BLOOD COUNT 2.86 X10'6 (4.70-6.10); RED CELL DISTRIBUTION WIDTH 19.9 % (11.5-14.5); WHITE BLOOD COUNT 12.5 X10'3 (4.5-11.0)
[2017-12-13 07:00] VITALS: BP 122/69
[2017-12-13] MEDS: K, MAG and/or Phos replacement - Verify level? MC SCH (08:00)
[2017-12-13] MEDS: spironolactone 25 MG tablet PO SCH (08:31)
[2017-12-13] MEDS: furosemide 20 MG/2 ML vial IV SCH ×3 (08:32→20:33)
[2017-12-13] MEDS: pantoprazole 40mg Tablet.DR PO SCH (08:32)
[2017-12-13] MEDS: lactobacillus rhamnosus 10,000 MMU CELLS/CAPSULE PO SCH ×2 (08:32→20:30)
[2017-12-13] MEDS: insulin Lispro (HumaLOG) vial - multi-dose SQ SCH ×2 (09:58→13:30)
[2017-12-13 11:00] VITALS: BP 114/66
[2017-12-13] MEDS ORDERED: lactulose 20gm/30ml cup PO ONE (12:00)
[2017-12-13 20:00] VITALS: BP 112/72
[2017-12-13] MEDS: insulin glargine (Lantus) pen - multi-dose SQ SCH (22:00)
[2017-12-14] VITALS: BP 138/72
[2017-12-14] MEDS: lactulose 20gm/30ml cup PO SCH ×4 (02:00→20:45)
[2017-12-14 06:20] LABS: BASOPHILS % (AUTO) 0.3 % (0-1); EOSINOPHILS # (AUTO) 0.2 X10'3 (0-0.9); HEMATOCRIT 26.2 % (42.0-52.0); LYMPHOCYTES # (AUTO) 1.3 X10'3 (1.1-4.8); LYMPHOCYTES % (AUTO) 12.4 % (21-51); MEAN CORPUSCULAR HEMOGLOBIN 31.5 PG (27.0-31.0); MEAN CORPUSCULAR HGB CONC 34.2 % (33.0-36.5); MEAN CORPUSCULAR VOLUME 92.1 FL (78-98); MEAN PLATELET VOLUME 8.2 FL (7.4-10.4); MONOCYTES # (AUTO) 1.5 X10'3 (0-0.9); MONOCYTES % (AUTO) 13.7 % (2-12); NEUTROPHILS # (AUTO) 7.7 X10'3 (1.8-7.7); NEUTROPHILS % (AUTO) 71.6 % (42-75); PLATELET COUNT 168 X10'3 (140-440); RED BLOOD COUNT 2.85 X10'6 (4.70-6.10); RED CELL DISTRIBUTION WIDTH 19.6 % (11.5-14.5); WHITE BLOOD COUNT 10.8 X10'3 (4.5-11.0)
[2017-12-14 06:37] LABS: ALANINE AMINOTRANSFERASE 21 U/L (12-78); ALBUMIN 1.7 G/DL (3.4-5.0); ALBUMIN/GLOBULIN RATIO 0.3 (1.1-1.5); ALKALINE PHOSPHATASE 239 IU/L (46-116); ANION GAP 7 (8-16); ASPARTATE AMINO TRANSFERASE 23 U/L (10-37); BILIRUBIN,TOTAL 2.3 MG/DL (0.1-1.0); BLOOD UREA NITROGEN 16 MG/DL (7-18); BUN/CREATININE RATIO 13.6 (5.4-32.0); CALCIUM 8.2 MG/DL (8.5-10.1); CHLORIDE 103 MMOL/L (99-107); CREATININE 1.18 MG/DL (0.60-1.10); GLUCOSE 84 MG/DL (70-104); POTASSIUM 3.9 MMOL/L (3.5-5.1); SODIUM 137 MMOL/L (135-145); TOTAL CARBON DIOXIDE 26.6 MMOL/L (24-32); TOTAL PROTEIN 7.1 G/DL (6.4-8.2); eGFR 64 ML/MIN
[2017-12-14 07:44] VITALS: BP 116/68
[2017-12-14] MEDS: K, MAG and/or Phos replacement - Verify level? MC SCH (08:00)
[2017-12-14] MEDS: pantoprazole 40mg Tablet.DR PO SCH (10:03)
[2017-12-14] MEDS: furosemide 20 MG/2 ML vial IV SCH ×3 (10:04→20:52)
[2017-12-14] MEDS: spironolactone 25 MG tablet PO SCH (10:04)
[2017-12-14] MEDS: lactobacillus rhamnosus 10,000 MMU CELLS/CAPSULE PO SCH ×2 (10:04→20:45)
[2017-12-14] MEDS: insulin Lispro (HumaLOG) vial - multi-dose SQ SCH (10:16)
[2017-12-14 11:00] VITALS: BP 117/70
[2017-12-14 11:36] VITALS: BP 116/59
[2017-12-14 11:45] VITALS: BP 115/63
[2017-12-14] MEDS: dextrose ORAL solution 15 GM/59 ML bottle PO PRN ×2 (12:24→12:47)
[2017-12-14 18:00] VITALS: BP 114/68
[2017-12-14] MEDS: insulin glargine (Lantus) pen - multi-dose SQ SCH (22:13)
[2017-12-15] VITALS: BP 116/64
[2017-12-15] MEDS: lactulose 20gm/30ml cup PO SCH ×4 (02:25→19:50)
[2017-12-15] MEDS: acetaminophen 325mg tablet PO PRN (03:33)
[2017-12-15 05:48] LABS: ALANINE AMINOTRANSFERASE 20 U/L (12-78); ALBUMIN 1.6 G/DL (3.4-5.0); ALBUMIN/GLOBULIN RATIO 0.3 (1.1-1.5); ALKALINE PHOSPHATASE 241 IU/L (46-116); ANION GAP 8 (8-16); ASPARTATE AMINO TRANSFERASE 23 U/L (10-37); BILIRUBIN,TOTAL 1.7 MG/DL (0.1-1.0); BLOOD UREA NITROGEN 16 MG/DL (7-18); BUN/CREATININE RATIO 11.9 (5.4-32.0); CALCIUM 7.7 MG/DL (8.5-10.1); CHLORIDE 98 MMOL/L (99-107); CREATININE 1.34 MG/DL (0.60-1.10); GLUCOSE 146 MG/DL (70-104); SODIUM 132 MMOL/L (135-145); TOTAL CARBON DIOXIDE 26.5 MMOL/L (24-32); TOTAL PROTEIN 7.2 G/DL (6.4-8.2); eGFR 56 ML/MIN
[2017-12-15] MEDS: furosemide 20 MG/2 ML vial IV SCH ×3 (07:12→19:41)
[2017-12-15 07:30] VITALS: BP 102/50
[2017-12-15] MEDS: pantoprazole 40mg Tablet.DR PO SCH (07:55)
[2017-12-15] MEDS: spironolactone 25 MG tablet PO SCH (07:55)
[2017-12-15] MEDS: lactobacillus rhamnosus 10,000 MMU CELLS/CAPSULE PO SCH ×2 (07:56→19:49)
[2017-12-15] MEDS: K, MAG and/or Phos replacement - Verify level? MC SCH (08:00)
[2017-12-15] MEDS: insulin Lispro (HumaLOG) vial - multi-dose SQ SCH ×2 (09:20→19:41)
[2017-12-15 11:00] VITALS: BP 104/83
[2017-12-15 18:00] VITALS: BP 114/66
[2017-12-15] MEDS: insulin glargine (Lantus) pen - multi-dose SQ SCH (22:02)
[2017-12-15 23:30] VITALS: BP 113/64
[2017-12-16] MEDS: lactulose 20gm/30ml cup PO SCH ×4 (01:50→21:06)
[2017-12-16 05:47] LABS: ALANINE AMINOTRANSFERASE 21 U/L (12-78); ALBUMIN 1.6 G/DL (3.4-5.0); ALBUMIN/GLOBULIN RATIO 0.3 (1.1-1.5); ALKALINE PHOSPHATASE 233 IU/L (46-116); ANION GAP 7 (8-16); ASPARTATE AMINO TRANSFERASE 27 U/L (10-37); BILIRUBIN,TOTAL 1.6 MG/DL (0.1-1.0); BLOOD UREA NITROGEN 16 MG/DL (7-18); BUN/CREATININE RATIO 12.2 (5.4-32.0); CALCIUM 7.7 MG/DL (8.5-10.1); CHLORIDE 97 MMOL/L (99-107); CREATININE 1.31 MG/DL (0.60-1.10); GLUCOSE 126 MG/DL (70-104); SODIUM 130 MMOL/L (135-145); TOTAL CARBON DIOXIDE 25.9 MMOL/L (24-32); TOTAL PROTEIN 7.2 G/DL (6.4-8.2); eGFR 57 ML/MIN
[2017-12-16 07:00] VITALS: BP 102/60
[2017-12-16] MEDS: furosemide 20 MG/2 ML vial IV SCH ×3 (08:00→21:00)
[2017-12-16] MEDS: K, MAG and/or Phos replacement - Verify level? MC SCH (08:00)
[2017-12-16] MEDS: lactobacillus rhamnosus 10,000 MMU CELLS/CAPSULE PO SCH ×2 (08:11→21:06)
[2017-12-16] MEDS: spironolactone 25 MG tablet PO SCH (08:11)
[2017-12-16] MEDS: pantoprazole 40mg Tablet.DR PO SCH (08:12)
[2017-12-16] MEDS: insulin Lispro (HumaLOG) vial - multi-dose SQ SCH ×3 (10:39→21:04)
[2017-12-16 11:00] VITALS: BP 108/57
[2017-12-16 13:31] LABS: SODIUM,URINE RANDOM < 15 MEQ/L
[2017-12-16 18:00] VITALS: BP 117/68
[2017-12-16] MEDS: insulin glargine (Lantus) pen - multi-dose SQ SCH (21:03)
[2017-12-17] VITALS: BP 110/56
[2017-12-17] MEDS: lactulose 20gm/30ml cup PO SCH ×4 (02:18→19:36)
[2017-12-17 05:09] LABS: BASOPHILS # (AUTO) 0.1 X10'3 (0-0.2); BASOPHILS % (AUTO) 0.4 % (0-1); EOSINOPHILS # (AUTO) 0.3 X10'3 (0-0.9); EOSINOPHILS % (AUTO) 2.6 % (0-6); HEMATOCRIT 24.9 % (42.0-52.0); HEMOGLOBIN 8.5 g/dl (14.0-17.9); LYMPHOCYTES # (AUTO) 1.9 X10'3 (1.1-4.8); LYMPHOCYTES % (AUTO) 14.7 % (21-51); MEAN CORPUSCULAR HEMOGLOBIN 31.8 PG (27.0-31.0); MEAN CORPUSCULAR HGB CONC 34.3 % (33.0-36.5); MEAN CORPUSCULAR VOLUME 92.8 FL (78-98); MEAN PLATELET VOLUME 8.2 FL (7.4-10.4); MONOCYTES # (AUTO) 1.8 X10'3 (0-0.9); NEUTROPHILS % (AUTO) 68.3 % (42-75); PLATELET COUNT 142 X10'3 (140-440); RED BLOOD COUNT 2.68 X10'6 (4.70-6.10); RED CELL DISTRIBUTION WIDTH 19.5 % (11.5-14.5); WHITE BLOOD COUNT 13.2 X10'3 (4.5-11.0)
[2017-12-17 05:19] LABS: INR 1.4 INR; PROTHROMBIN TIME 14.7 SECONDS (9.0-12.0)
[2017-12-17 05:37] LABS: ALANINE AMINOTRANSFERASE 14 U/L (12-78); ALBUMIN 1.6 G/DL (3.4-5.0); ALBUMIN/GLOBULIN RATIO 0.3 (1.1-1.5); ALKALINE PHOSPHATASE 237 IU/L (46-116); ANION GAP 6 (8-16); ASPARTATE AMINO TRANSFERASE 28 U/L (10-37); BILIRUBIN,TOTAL 1.5 MG/DL (0.1-1.0); BLOOD UREA NITROGEN 21 MG/DL (7-18); BUN/CREATININE RATIO 14.8 (5.4-32.0); CALCIUM 7.6 MG/DL (8.5-10.1); CHLORIDE 96 MMOL/L (99-107); CREATININE 1.42 MG/DL (0.60-1.10); GLUCOSE 128 MG/DL (70-104); POTASSIUM 4.4 MMOL/L (3.5-5.1); SODIUM 128 MMOL/L (135-145); TOTAL PROTEIN 7.3 G/DL (6.4-8.2); eGFR 52 ML/MIN
[2017-12-17 07:00] VITALS: BP 104/59
[2017-12-17] MEDS: K, MAG and/or Phos replacement - Verify level? MC SCH (08:00)
[2017-12-17] MEDS: furosemide 20 MG/2 ML vial IV SCH ×3 (08:00→19:40)
[2017-12-17] MEDS: spironolactone 25 MG tablet PO SCH (08:15)
[2017-12-17] MEDS: lactobacillus rhamnosus 10,000 MMU CELLS/CAPSULE PO SCH ×2 (08:15→19:36)
[2017-12-17] MEDS: pantoprazole 40mg Tablet.DR PO SCH (08:15)
[2017-12-17] MEDS: insulin Lispro (HumaLOG) vial - multi-dose SQ SCH ×3 (10:31→19:33)
[2017-12-17 11:39] VITALS: BP 114/64
[2017-12-17 12:29] LABS: HIV ANTIBODY 1&2 RAPID NON-REACTIVE (Neg)
[2017-12-17 18:00] VITALS: BP 122/68
[2017-12-17] MEDS: insulin glargine (Lantus) pen - multi-dose SQ SCH (21:12)
[2017-12-18] VITALS: BP 123/61
[2017-12-18] MEDS: lactulose 20gm/30ml cup PO SCH ×4 (02:19→21:29)
[2017-12-18 04:44] LABS: BASOPHILS % (AUTO) 0.2 % (0-1); EOSINOPHILS # (AUTO) 0.4 X10'3 (0-0.9); EOSINOPHILS % (AUTO) 2.6 % (0-6); HEMATOCRIT 23.6 % (42.0-52.0); HEMOGLOBIN 8.1 g/dl (14.0-17.9); LYMPHOCYTES # (AUTO) 1.6 X10'3 (1.1-4.8); LYMPHOCYTES % (AUTO) 11.2 % (21-51); MEAN CORPUSCULAR HEMOGLOBIN 31.7 PG (27.0-31.0); MEAN CORPUSCULAR HGB CONC 34.3 % (33.0-36.5); MEAN CORPUSCULAR VOLUME 92.4 FL (78-98); MEAN PLATELET VOLUME 8.4 FL (7.4-10.4); MONOCYTES # (AUTO) 1.8 X10'3 (0-0.9); MONOCYTES % (AUTO) 12.5 % (2-12); NEUTROPHILS # (AUTO) 10.3 X10'3 (1.8-7.7); NEUTROPHILS % (AUTO) 73.5 % (42-75); PLATELET COUNT 132 X10'3 (140-440); RED BLOOD COUNT 2.55 X10'6 (4.70-6.10); RED CELL DISTRIBUTION WIDTH 19.7 % (11.5-14.5)
[2017-12-18 05:10] LABS: ALANINE AMINOTRANSFERASE 24 U/L (12-78); ALBUMIN 1.6 G/DL (3.4-5.0); ALBUMIN/GLOBULIN RATIO 0.3 (1.1-1.5); ALKALINE PHOSPHATASE 220 IU/L (46-116); ANION GAP 8 (8-16); ASPARTATE AMINO TRANSFERASE 32 U/L (10-37); BILIRUBIN,TOTAL 1.5 MG/DL (0.1-1.0); BLOOD UREA NITROGEN 22 MG/DL (7-18); BUN/CREATININE RATIO 15.9 (5.4-32.0); CALCIUM 7.8 MG/DL (8.5-10.1); CHLORIDE 99 MMOL/L (99-107); CREATININE 1.38 MG/DL (0.60-1.10); GLUCOSE 99 MG/DL (70-104); POTASSIUM 4.5 MMOL/L (3.5-5.1); SODIUM 132 MMOL/L (135-145); TOTAL CARBON DIOXIDE 25.1 MMOL/L (24-32); TOTAL PROTEIN 7.1 G/DL (6.4-8.2); eGFR 54 ML/MIN
[2017-12-18] MEDS: pantoprazole 40mg Tablet.DR PO SCH (07:30)
[2017-12-18] MEDS: lactobacillus rhamnosus 10,000 MMU CELLS/CAPSULE PO SCH ×2 (08:00→21:29)
[2017-12-18] MEDS: K, MAG and/or Phos replacement - Verify level? MC SCH (08:00)
[2017-12-18] MEDS: furosemide 20 MG/2 ML vial IV SCH ×3 (08:00→21:00)
[2017-12-18] MEDS: spironolactone 25 MG tablet PO SCH (08:30)
[2017-12-18 08:47] LABS: RPR Non Reactive (Non Reactive)
[2017-12-18] MEDS: insulin Lispro (HumaLOG) vial - multi-dose SQ SCH ×3 (09:00→19:35)
[2017-12-18 11:14] LABS: HEP A AB, IGM Negative (Negative); HEP B CORE AB, TOT Negative (Negative); HEPATITIS C ANTIBODY 0.1 s/co ratio (0.0-0.9)
[2017-12-18 13:30] LABS: AFP,SERUM, TUMOR MARKER 2.3 ng/mL (0.0-8.3); VITAMIN D, 25-HYDROXY 6.9 ng/mL (30.0-100.0)
[2017-12-18 14:00] VITALS: BP 106/57
[2017-12-18 18:00] VITALS: BP 117/68
[2017-12-18] MEDS: insulin glargine (Lantus) pen - multi-dose SQ SCH (21:26)
[2017-12-19] VITALS: BP 98/57
[2017-12-19] MEDS: lactulose 20gm/30ml cup PO SCH ×4 (02:12→20:39)
[2017-12-19 05:24] LABS: CYTOMEGALOVIRUS AB, IGM <30.0 AU/mL (0.0-29.9); EBV AB VCA, IGG >600.0 U/mL (0.0-17.9); EBV AB VCA, IGM <36.0 U/mL (0.0-35.9)
[2017-12-19 05:39] LABS: BASOPHILS % (AUTO) 0.4 % (0-1); EOSINOPHILS # (AUTO) 0.4 X10'3 (0-0.9); EOSINOPHILS % (AUTO) 3.1 % (0-6); HEMATOCRIT 22.5 % (42.0-52.0); HEMOGLOBIN 7.7 g/dl (14.0-17.9); LYMPHOCYTES # (AUTO) 1.6 X10'3 (1.1-4.8); LYMPHOCYTES % (AUTO) 13.1 % (21-51); MEAN CORPUSCULAR HEMOGLOBIN 31.8 PG (27.0-31.0); MEAN CORPUSCULAR HGB CONC 34.4 % (33.0-36.5); MEAN CORPUSCULAR VOLUME 92.6 FL (78-98); MEAN PLATELET VOLUME 8.6 FL (7.4-10.4); MONOCYTES # (AUTO) 1.7 X10'3 (0-0.9); MONOCYTES % (AUTO) 14.2 % (2-12); NEUTROPHILS # (AUTO) 8.5 X10'3 (1.8-7.7); NEUTROPHILS % (AUTO) 69.2 % (42-75); PLATELET COUNT 130 X10'3 (140-440); RED BLOOD COUNT 2.43 X10'6 (4.70-6.10); RED CELL DISTRIBUTION WIDTH 19.6 % (11.5-14.5); WHITE BLOOD COUNT 12.3 X10'3 (4.5-11.0)
[2017-12-19 06:03] LABS: ALANINE AMINOTRANSFERASE 26 U/L (12-78); ALBUMIN 1.5 G/DL (3.4-5.0); ALBUMIN/GLOBULIN RATIO 0.3 (1.1-1.5); ALKALINE PHOSPHATASE 220 IU/L (46-116); ANION GAP 7 (8-16); ASPARTATE AMINO TRANSFERASE 30 U/L (10-37); BILIRUBIN,TOTAL 1.4 MG/DL (0.1-1.0); BLOOD UREA NITROGEN 25 MG/DL (7-18); BUN/CREATININE RATIO 16.6 (5.4-32.0); CALCIUM 7.8 MG/DL (8.5-10.1); CHLORIDE 100 MMOL/L (99-107); CREATININE 1.51 MG/DL (0.60-1.10); GLUCOSE 104 MG/DL (70-104); POTASSIUM 4.6 MMOL/L (3.5-5.1); SODIUM 131 MMOL/L (135-145); TOTAL CARBON DIOXIDE 24.2 MMOL/L (24-32); TOTAL PROTEIN 6.8 G/DL (6.4-8.2); eGFR 48 ML/MIN
[2017-12-19 07:52] VITALS: BP 112/65
[2017-12-19] MEDS: furosemide 20 MG/2 ML vial IV SCH ×3 (08:00→20:39)
[2017-12-19] MEDS: K, MAG and/or Phos replacement - Verify level? MC SCH (08:00)
[2017-12-19 08:16] LABS: VARICELLA-ZOSTER VIRUS AB, IGG 2305 index (Immune >165)
[2017-12-19] MEDS: lactobacillus rhamnosus 10,000 MMU CELLS/CAPSULE PO SCH ×2 (09:05→20:39)
[2017-12-19] MEDS: pantoprazole 40mg Tablet.DR PO SCH (09:05)
[2017-12-19] MEDS: spironolactone 25 MG tablet PO SCH (09:06)
[2017-12-19] MEDS: normal saline 1000ml 1,000 ML IV SCH (09:13)
[2017-12-19 11:30] VITALS: BP 121/70
[2017-12-19] MEDS: insulin Lispro (HumaLOG) vial - multi-dose SQ SCH (13:34)
[2017-12-19 20:00] VITALS: BP 120/72
[2017-12-19] MEDS: insulin glargine (Lantus) pen - multi-dose SQ SCH (21:57)
[2017-12-20] VITALS (11 sets, daily range): BP systolic 114–125; BP diastolic 62–83
[2017-12-20] MEDS: lactulose 20gm/30ml cup PO SCH ×3 (02:55→14:13)
[2017-12-20 05:47] LABS: BASOPHILS % (AUTO) 0.3 % (0-1); EOSINOPHILS # (AUTO) 0.3 X10'3 (0-0.9); EOSINOPHILS % (AUTO) 2.4 % (0-6); HEMATOCRIT 22.6 % (42.0-52.0); HEMOGLOBIN 7.8 g/dl (14.0-17.9); LYMPHOCYTES # (AUTO) 1.5 X10'3 (1.1-4.8); LYMPHOCYTES % (AUTO) 12.4 % (21-51); MEAN CORPUSCULAR HEMOGLOBIN 32.1 PG (27.0-31.0); MEAN CORPUSCULAR HGB CONC 34.4 % (33.0-36.5); MEAN CORPUSCULAR VOLUME 93.2 FL (78-98); MEAN PLATELET VOLUME 8.6 FL (7.4-10.4); MONOCYTES # (AUTO) 1.8 X10'3 (0-0.9); MONOCYTES % (AUTO) 15.3 % (2-12); NEUTROPHILS # (AUTO) 8.2 X10'3 (1.8-7.7); NEUTROPHILS % (AUTO) 69.6 % (42-75); PLATELET COUNT 133 X10'3 (140-440); RED BLOOD COUNT 2.43 X10'6 (4.70-6.10); WHITE BLOOD COUNT 11.8 X10'3 (4.5-11.0)
[2017-12-20] MEDS: normal saline 1000ml 1,000 ML IV SCH (05:47)
[2017-12-20 05:51] LABS: INR 1.4 INR; PROTHROMBIN TIME 14.2 SECONDS (9.0-12.0)
[2017-12-20 06:04] LABS: ALANINE AMINOTRANSFERASE 25 U/L (12-78); ALBUMIN 1.5 G/DL (3.4-5.0); ALBUMIN/GLOBULIN RATIO 0.3 (1.1-1.5); ALKALINE PHOSPHATASE 223 IU/L (46-116); ANION GAP 7 (8-16); ASPARTATE AMINO TRANSFERASE 26 U/L (10-37); BILIRUBIN,TOTAL 1.2 MG/DL (0.1-1.0); BLOOD UREA NITROGEN 25 MG/DL (7-18); BUN/CREATININE RATIO 16.8 (5.4-32.0); CALCIUM 7.7 MG/DL (8.5-10.1); CHLORIDE 101 MMOL/L (99-107); CREATININE 1.49 MG/DL (0.60-1.10); GLUCOSE 205 MG/DL (70-104); MAGNESIUM 1.8 MG/DL (1.5-2.4); POTASSIUM 4.5 MMOL/L (3.5-5.1); SODIUM 132 MMOL/L (135-145); TOTAL CARBON DIOXIDE 23.6 MMOL/L (24-32); TOTAL PROTEIN 7.1 G/DL (6.4-8.2); eGFR 49 ML/MIN
[2017-12-20] MEDS ORDERED: furosemide 40mg/4ml inj IV ONE (06:10)
[2017-12-20] MEDS: K, MAG and/or Phos replacement - Verify level? MC SCH (08:00)
[2017-12-20] MEDS: insulin Lispro (HumaLOG) vial - multi-dose SQ SCH ×2 (08:51→14:10)
[2017-12-20] MEDS: furosemide 20 MG/2 ML vial IV SCH ×2 (08:53→13:00)
[2017-12-20] MEDS: lactobacillus rhamnosus 10,000 MMU CELLS/CAPSULE PO SCH (08:56)
[2017-12-20] MEDS: spironolactone 25 MG tablet PO SCH (08:56)
[2017-12-20] MEDS: pantoprazole 40mg Tablet.DR PO SCH (09:04)
[2017-12-20 15:55] LABS: HEMATOCRIT 25.9 % (42.0-52.0); HEMOGLOBIN 8.9 g/dl (14.0-17.9); MEAN CORPUSCULAR HEMOGLOBIN 31.6 PG (27.0-31.0); MEAN CORPUSCULAR HGB CONC 34.2 % (33.0-36.5); MEAN CORPUSCULAR VOLUME 92.4 FL (78-98); MEAN PLATELET VOLUME 8.3 FL (7.4-10.4); PLATELET COUNT 137 X10'3 (140-440); RED CELL DISTRIBUTION WIDTH 20.3 % (11.5-14.5); WHITE BLOOD COUNT 12.2 X10'3 (4.5-11.0)
== END 2017-12-20 18:50 | disposition home or self-care (01) | DRG 720 ==
LOC: ER 14:33 → ED HOLD 11-15 02:01 → PCU 3S 11-15 08:38 → ICU 2S 11-16 19:19 → PCU 3S 11-19 11:18 → SUR 3N 12-03 16:46
PROVIDERS: ADMIT Internal Medicine; ATTEND Internal Medicine
PROC: 30233N1 Transfusion of Nonautologous Red Blood Cells into Peripheral Vein, Percutaneous Approach (ICD-10-PCS; principal; 2017-11-14)
PROC: 0W9G3ZZ Drainage of Peritoneal Cavity, Percutaneous Approach (ICD-10-PCS; 2017-11-26)
PROC: 0W9G3ZZ Drainage of Peritoneal Cavity, Percutaneous Approach (ICD-10-PCS; 2017-12-06)
PROC: 0W9G3ZZ Drainage of Peritoneal Cavity, Percutaneous Approach (ICD-10-PCS; 2017-12-14)
DX: A41.9 Sepsis, unspecified organism (principal); K72.00 Acute and subacute hepatic failure without coma; K76.7 Hepatorenal syndrome; E43 Unspecified severe protein-calorie malnutrition; N18.4 Chronic kidney disease, stage 4 (severe); D68.9 Coagulation defect, unspecified; K65.2 Spontaneous bacterial peritonitis; N17.9 Acute kidney failure, unspecified; Z76.82 Awaiting organ transplant status; E11.22 Type 2 diabetes mellitus with diabetic chronic kidney disease; E87.1 Hypo-osmolality and hyponatremia; D69.59 Other secondary thrombocytopenia; K70.31 Alcoholic cirrhosis of liver with ascites; K70.11 Alcoholic hepatitis with ascites; I12.9 Hypertensive chronic kidney disease with stage 1 through stage 4 chronic kidney disease, or unspecified chronic kidney disease; D63.8 Anemia in other chronic diseases classified elsewhere; E87.5 Hyperkalemia; G25.3 Myoclonus; J98.11 Atelectasis; N28.9 Disorder of kidney and ureter, unspecified; K72.10 Chronic hepatic failure without coma; Z88.1 Allergy status to other antibiotic agents; Z59.0 Homelessness; Z87.891 Personal history of nicotine dependence; Z59.9 Problem related to housing and economic circumstances, unspecified; Z90.49 Acquired absence of other specified parts of digestive tract; Z68.33 Body mass index [BMI] 33.0-33.9, adult
CPT/HCPCS: 36415; 49083; 70450; 70551; 71045; 76775; 80048; 80053; 80202; 80305; 80320; 81001; 81003; 82103; 82140; 82272; 82306; 82570; 82948; 83605; 83735; 84100; 84132; 84133; 84145; 84300; 84484; 85025; 85027; 85610; 86592; 86644; 86645; 86663; 86664; 86665; 86703; 86704; 86708; 86709; 86803; 86885; 86900; 86901; 86920; 87040; 87070; 93005; 96361; 96365; 96368; 96375; 97110; 97112; 97116; 97162; 97530; 99285; A4315; A4353; A6212; A6213; A6250; A6258; C1758; J0610; J0692; J1815; J1940; J2405; J3370; J3480; J3490; J7030; J7070; P9016; P9047

== ENCOUNTER 2017-12-30 12:09 | Inpatient (IN) | payer MEDICAID ==
[~2017-12-30] VITALS: Ht 190.5 cm; Wt 123.1 kg
[2017-12-30] VITALS (16 sets, daily range): BP systolic 82–128; BP diastolic 48–72
[~2017-12-30 12:09] MED LIST changes: -FURO40TA4 PO; -GLYB5TAB7 PO; +LACT10SO PO; -METO-292 PO; -PANT-47 PO; -POTA10CA44 PO; -THIA100T70 PO
[2017-12-30] MEDS: normal saline 1000ML IV soln IVB ONE (12:30)
[2017-12-30 12:52] LABS: HEMATOCRIT 26.9 % (42.0-52.0); HEMOGLOBIN 8.8 g/dl (14.0-17.9); MEAN CORPUSCULAR HEMOGLOBIN 32.5 PG (27.0-31.0); MEAN CORPUSCULAR HGB CONC 32.6 % (33.0-36.5); MEAN CORPUSCULAR VOLUME 99.7 FL (78-98); MEAN PLATELET VOLUME 8.8 FL (7.4-10.4); PLATELET COUNT 166 X10'3 (140-440); RED BLOOD COUNT 2.69 X10'6 (4.70-6.10); RED CELL DISTRIBUTION WIDTH 21.1 % (11.5-14.5)
[2017-12-30 13:02] LABS: WHITE BLOOD COUNT 33.3 X10'3 (4.5-11.0)
[2017-12-30 13:08] LABS: ALANINE AMINOTRANSFERASE 24 U/L (12-78); ALBUMIN 1.2 G/DL (3.4-5.0); ALKALINE PHOSPHATASE 265 IU/L (46-116); CREATININE 2.34 MG/DL (0.60-1.10); LIPASE < 50 U/L (73-393); eGFR 29 ML/MIN
[2017-12-30 13:21] LABS: TOTAL CELLS COUNTED 100
[2017-12-30 13:22] LABS: ANISOCYTOSIS 3+; GIANT PLATELET FEW; LARGE PLATELETS FEW; PLATELET ESTIMATE NORMAL
[2017-12-30 13:23] LABS: BURR CELLS 1+; POLYCHROMASIA 2+
[2017-12-30 13:24] LABS: SCHISTOCYTES FEW
[2017-12-30] MEDS: PHENYLEPHRINE 10MG IN 250ML NS IV SCH ×3 (13:25→20:05)
[2017-12-30 13:27] LABS: ASPARTATE AMINO TRANSFERASE 45 U/L (10-37)
[2017-12-30 13:28] LABS: ALBUMIN/GLOBULIN RATIO 0.2 (1.1-1.5); ANION GAP 31 (8-16); BILIRUBIN,TOTAL 1.9 MG/DL (0.1-1.0); BLOOD UREA NITROGEN 22 MG/DL (7-18); BUN/CREATININE RATIO 9.4 (5.4-32.0); CALCIUM 10.2 MG/DL (8.5-10.1); CHLORIDE 104 MMOL/L (99-107); GLUCOSE 333 MG/DL (70-104); POTASSIUM 4.7 MMOL/L (3.5-5.1); SODIUM 148 MMOL/L (135-145); TOTAL PROTEIN 6.4 G/DL (6.4-8.2); TROPONIN I 0.04 NG/ML (0.0-0.05)
[2017-12-30 13:38] LABS: TOTAL CARBON DIOXIDE 12.6 MMOL/L (24-32)
[2017-12-30] MEDS: octreotide 100mcg/1 ml ampule IV ONE (13:40)
[2017-12-30] MEDS: phytonadione inj. 10 MG in normal saline 100ml IV soln 99 ML IV ONE (13:50)
[2017-12-30] MEDS: pantoprazole 40 MG vial IV ONE (13:50)
[2017-12-30] MEDS: piperacillin-tazo 2.25gm/50ml 50 ML IV STA (13:50)
[2017-12-30] MEDS ORDERED: vasopressin inj. 60 UNIT in normal saline 100ml IV soln 97 ML IV SCH (13:50)
[2017-12-30] MEDS ORDERED: VASOPRESSIN 60 UNITS in NS 100ml IV SCH (13:53)
[2017-12-30] MEDS ORDERED: potassium Cl 40MEQ/NS 500ml 500 ML IV PRN ×2 (14:00)
[2017-12-30] MEDS: normal saline 1000ml 1,000 ML IV ONE ×2 (14:00)
[2017-12-30] MEDS ORDERED: sodium phosphate inj. 15 MMOL in dextrose 5%-water 150 ML IV PRN (14:00)
[2017-12-30] MEDS ORDERED: K, MAG and/or Phos replacement - Verify level? MC SCH (14:00)
[2017-12-30] MEDS ORDERED: magnesium 4gm in 100ml NS 100 ML IV PRN (14:00)
[2017-12-30] MEDS ORDERED: potassium Cl 40MEQ/250ML bag 250 ML IV PRN ×2 (14:00)
[2017-12-30] MEDS ORDERED: sodium phosphate inj. 30 MMOL in dextrose 5%-water 250 ML IV PRN (14:00)
[2017-12-30] MEDS ORDERED: magnesium 2GM in 50ml NS 50 ML IV PRN (14:00)
[2017-12-30] MEDS ORDERED: vancomycin/NS 1 GM ADD-VANTAGE 250 ML X 1 DOSE IV ONE ×2 (14:00→14:40)
[2017-12-30 14:20] LABS: ABG BASE EXCESS -27.3 mmol/L (-2.0-3.0); ABG HCO3 7.6 mmol/L (22.0-26.0); ABG OXYGEN SATURATION 87.6 % (95-98); ABG PCO2 (T) 58.6 mmHg (35.0-48.0); ABG PH (T) 6.729 (7.350-7.450); ABG PO2 (T) 93.7 mmHg (83-108); ALLEN'S TEST Positive; FCOHb 0.7 % (0.5-1.5); FMetHb 0.3 % (0.3-1.12); FO2Hb 86.7 % (94-100); MINUTE VOLUME 8 L/min; PEEP 5 cm H2O; RESPIRATORY RATE 20 b/min; TIDAL VOLUME 400 mL; TOTAL HEMOGLOBIN 9.4 G/dl (14.0-18.0)
[2017-12-30] MEDS: sodium bicarbonate (8.4%) inj. 150 MEQ in dextrose 5%-water 1,000 ML IV SCH ×2 (14:25→20:50)
[2017-12-30] MEDS ORDERED: vancomycin/NS 1 GM ADD-VANTAGE 250 ML X 1 DOSE IV SCH (14:40)
[2017-12-30] MEDS ORDERED: CISatracurium besylate inj. 200 MG in normal saline 250ml IV soln 180 ML IV PRN (15:14)
[2017-12-30] MEDS ORDERED: CISatracurium **Bolus** 2 mg/ml inj IV PRN (15:15)
[2017-12-30] MEDS ORDERED: fentaNYL/PF 50MCG/1 ML 2ML syringe ONE (15:18)
[2017-12-30] MEDS ORDERED: LIDOcaine Viscous 15ml cup ONE (15:19)
[2017-12-30] MEDS ORDERED: MIDAZolam 5mg/5ml vial ONE (15:19)
[2017-12-30 15:31] LABS: MAGNESIUM 2.2 MG/DL (1.5-2.4)
[2017-12-30] MEDS ORDERED: fentaNYL/PF 50MCG/1 ML 2ML syringe IV ONE (15:35)
[2017-12-30] MEDS: mineral oil/petrolatum ophthal oint OP SCH ×2 (16:00→23:07)
[2017-12-30] MEDS ORDERED: VECuronium br 10mg inj. IV ONE (16:25)
[2017-12-30] MEDS ORDERED: DIPRIVAN 10 MG/ML IV PRN (16:30)
[2017-12-30] MEDS: OCTREOTIDE 1,250 MCG in NS 250ml IV.SOLN IV SCH (16:33)
[2017-12-30 16:36] LABS: ISTAT CREATININE 1.6 mg/dL (0.8-1.3); ISTAT HGB 9.2 g/dl (14.0-18.0); ISTAT IONIZED CALCIUM 1.41 mmol/L (1.03-1.32); ISTAT K 4.5 mmol/L (3.5-5.1); POC BUN/CREATININE RATIO 15.6 (5.4-32.0)
[2017-12-30 17:25] LABS: ABG BASE EXCESS -25.3 mmol/L (-2.0-3.0); ABG HCO3 7.9 mmol/L (22.0-26.0); ABG OXYGEN SATURATION 89.5 % (95-98); ABG PCO2 (T) 51.3 mmHg (35.0-48.0); ABG PH (T) 6.807 (7.350-7.450); ABG PO2 (T) 89.6 mmHg (83-108); ALLEN'S TEST Positive; FCOHb 0.5 % (0.5-1.5); FMetHb 0.3 % (0.3-1.12); FO2Hb 88.8 % (94-100); MINUTE VOLUME 10 L/min; PEEP 5 cm H2O; RESPIRATORY RATE 22 b/min; TIDAL VOLUME 450 mL; TOTAL HEMOGLOBIN 8.6 G/dl (14.0-18.0)
[2017-12-30] MEDS ORDERED: calcium chloride 100 MG/1 ML inj IV ONE ×2 (17:35→17:40)
[2017-12-30] MEDS ORDERED: sodium bicarbonate (8.4%) 1 mEq/ml syringe IV ONE ×2 (18:05→20:40)
[2017-12-30 18:18] LABS: BASOPHILS % (AUTO) 0.1 % (0-1); EOSINOPHILS % (AUTO) 0.2 % (0-6); HEMATOCRIT 26.2 % (42.0-52.0); HEMOGLOBIN 8.5 g/dl (14.0-17.9); LYMPHOCYTES # (AUTO) 3.2 X10'3 (1.1-4.8); LYMPHOCYTES % (AUTO) 10.6 % (21-51); MEAN CORPUSCULAR HEMOGLOBIN 31.8 PG (27.0-31.0); MEAN CORPUSCULAR HGB CONC 32.6 % (33.0-36.5); MEAN CORPUSCULAR VOLUME 97.5 FL (78-98); MEAN PLATELET VOLUME 7.6 FL (7.4-10.4); MONOCYTES # (AUTO) 0.3 X10'3 (0-0.9); NEUTROPHILS # (AUTO) 26.6 X10'3 (1.8-7.7); NEUTROPHILS % (AUTO) 88.1 % (42-75); PLATELET COUNT 233 X10'3 (140-440); RED BLOOD COUNT 2.68 X10'6 (4.70-6.10); RED CELL DISTRIBUTION WIDTH 20.2 % (11.5-14.5)
[2017-12-30] MEDS ORDERED: epiNEPHrine 0.1mg/ml 10ml syringe ONE (18:22)
[2017-12-30 18:32] LABS: WHITE BLOOD COUNT 30.2 X10'3 (4.5-11.0)
[2017-12-30] MEDS: LORazepam 2 mg/ml vial ONE ×2 (18:54→20:40)
[2017-12-30] MEDS ORDERED: CISatracurium besylate inj. 200 MG in dextrose 5%-water 180 ML IV PRN (19:24)
[2017-12-30] MEDS ORDERED: LORazepam 2 mg/ml vial IV PRN (19:50)
[2017-12-30] MEDS ORDERED: DEXTROSE 5% IV SCH (20:00)
[2017-12-30] MEDS ORDERED: LEVETIRACETAM IV SCH (20:00)
[2017-12-30] MEDS ORDERED: WATER IV SCH (20:00)
[2017-12-30] MEDS ORDERED: levetiracetam inj 1,000 MG in normal saline 100ml IV soln 90 ML IV SCH ×4 (20:00)
[2017-12-30] MEDS ORDERED: pantoprazole IV 80 MG in normal saline 100ml IV soln 100 ML IV SCH (20:00)
[2017-12-30 20:18] LABS: INR 8.9 INR; PROTHROMBIN TIME 72.2 SECONDS (9-12)
[2017-12-30 20:19] LABS: D-DIMER > 19.90 MG/L (0.43-2.62); FIBRINOGEN < 61 MG/DL (200-450)
[2017-12-30 20:21] LABS: PARTIAL THROMBOPLASTIN TIME 163.4 SECONDS (24.5-30.9)
[2017-12-30 20:26] LABS: ABG BASE EXCESS -23.7 mmol/L (-2.0-3.0); ABG HCO3 9.2 mmol/L (22.0-26.0); ABG OXYGEN SATURATION 87.7 % (95-98); ABG PCO2 (T) 41.1 mmHg (35.0-48.0); ABG PH (T) 6.913 (7.350-7.450); FCOHb 0.3 % (0.5-1.5); FMetHb 0.1 % (0.3-1.12); FO2Hb 87.3 % (94-100); MINUTE VOLUME 11 L/min; PEEP 8 cm H2O; RESPIRATORY RATE 22 b/min; RESPIRATORY RATE (OBSERVED) 22 b/min; TIDAL VOLUME 450 mL; TOTAL HEMOGLOBIN 8.7 G/dl (14.0-18.0)
[2017-12-30] MEDS ORDERED: TRANEXAMIC ACID IV ONE ×2 (20:40→22:00)
[2017-12-30] MEDS ORDERED: NORMAL SALINE IV ONE ×2 (20:40→22:00)
[2017-12-30] MEDS ORDERED: furosemide inj 100 MG in normal saline 100ml IV soln 90 ML IV SCH (20:40)
[2017-12-30] MEDS ORDERED: sodium bicarbonate (8.4%) 1 mEq/ml syringe ONE (20:48)
[2017-12-30] MEDS ORDERED: tranexamic acid 100mg/ml inj. ONE (21:15)
[2017-12-30 21:23] LABS: ALBUMIN 1.2 G/DL (3.4-5.0); ANION GAP 23 (8-16); BILIRUBIN,TOTAL 2.8 MG/DL (0.1-1.0); BLOOD UREA NITROGEN 22 MG/DL (7-18); BUN/CREATININE RATIO 9.5 (5.4-32.0); CHLORIDE 105 MMOL/L (99-107); CREATINE KINASE 138 U/L (39-308); CREATININE 2.32 MG/DL (0.60-1.10); MAGNESIUM 2.1 MG/DL (1.5-2.4); POTASSIUM 4.2 MMOL/L (3.5-5.1); SODIUM 141 MMOL/L (135-145); TOTAL PROTEIN 5.1 G/DL (6.4-8.2); eGFR 29 ML/MIN
[2017-12-30 21:24] LABS: ALANINE AMINOTRANSFERASE 43 U/L (12-78); ALBUMIN/GLOBULIN RATIO 0.3 (1.1-1.5); ALKALINE PHOSPHATASE 183 IU/L (46-116); ASPARTATE AMINO TRANSFERASE 98 U/L (10-37)
[2017-12-30 21:25] LABS: GLUCOSE 114 MG/DL (70-104)
[2017-12-30] MEDS ORDERED: furosemide 10 MG/1 ML 10ml inj IV ONE (21:25)
[2017-12-30] MEDS: NORepinephrine 8mg/ 250ml NS 250 ML IV SCH (22:11)
[2017-12-30] MEDS: piperacillin-tazo 2.25gm/50ml 50 ML IV SCH (22:38)
[2017-12-31] VITALS (7 sets, daily range): BP systolic 105–121; BP diastolic 45–50
[2017-12-31] MEDS: NORepinephrine 8mg/ 250ml NS 250 ML IV SCH (02:31)
[2017-12-31] MEDS: mineral oil/petrolatum ophthal oint OP SCH ×2 (02:39→04:00)
[2017-12-31] MEDS: sodium bicarbonate (8.4%) inj. 150 MEQ in dextrose 5%-water 1,000 ML IV SCH (02:39)
[2017-12-31 02:51] LABS: ABG BASE EXCESS -24.6 mmol/L (-2.0-3.0); ABG HCO3 7.8 mmol/L (22.0-26.0); ABG PCO2 (T) 32.9 mmHg (35.0-48.0); ABG PH (T) 6.945 (7.350-7.450); ABG PO2 (T) 45.6 mmHg (83-108); FCOHb 0.1 % (0.5-1.5); FMetHb 0.3 % (0.3-1.12); FO2Hb 89.6 % (94-100); MINUTE VOLUME 12 L/min; PATIENT TEMPERATURE 30.8; PEEP 8 cm H2O; RESPIRATORY RATE 28 b/min; RESPIRATORY RATE (OBSERVED) 28 b/min; TIDAL VOLUME 425 mL; TOTAL HEMOGLOBIN 10.2 G/dl (14.0-18.0)
[2017-12-31 03:01] LABS: OXYGEN SATURATION (MIXED VEN) 78.6 % (60-80); PO2 MIXED VENOUS (TEMP COR) 31.4 mmHg (35-46)
[2017-12-31 03:05] LABS: ANION GAP 30 (8-16); BLOOD UREA NITROGEN 20 MG/DL (7-18); BUN/CREATININE RATIO 8.4 (5.4-32.0); CHLORIDE 103 MMOL/L (99-107); CREATININE 2.39 MG/DL (0.60-1.10); POTASSIUM 4.2 MMOL/L (3.5-5.1); SODIUM 142 MMOL/L (135-145)
[2017-12-31 03:06] LABS: ALANINE AMINOTRANSFERASE 57 U/L (12-78); ALBUMIN 1.3 G/DL (3.4-5.0); ALBUMIN/GLOBULIN RATIO 0.3 (1.1-1.5); ALKALINE PHOSPHATASE 158 IU/L (46-116); ASPARTATE AMINO TRANSFERASE 161 U/L (10-37); BILIRUBIN,TOTAL 3.6 MG/DL (0.1-1.0); CALCIUM 7.8 MG/DL (8.5-10.1); PHOSPHORUS 6.6 MG/DL (2.3-4.5); TOTAL PROTEIN 5.2 G/DL (6.4-8.2); eGFR 28 ML/MIN
[2017-12-31 03:09] LABS: GLUCOSE 133 MG/DL (70-104)
[2017-12-31 03:14] LABS: TOTAL CARBON DIOXIDE 9.3 MMOL/L (24-32)
[2017-12-31] MEDS: piperacillin-tazo 2.25gm/50ml 50 ML IV SCH (03:16)
[2017-12-31 04:04] LABS: BASOPHILS % (AUTO) 0.2 % (0-1); EOSINOPHILS # (AUTO) 0.4 X10'3 (0-0.9); EOSINOPHILS % (AUTO) 1.6 % (0-6); HEMATOCRIT 28.1 % (42.0-52.0); HEMOGLOBIN 9.4 g/dl (14.0-17.9); LYMPHOCYTES # (AUTO) 2.1 X10'3 (1.1-4.8); LYMPHOCYTES % (AUTO) 9.4 % (21-51); MEAN CORPUSCULAR HEMOGLOBIN 32.1 PG (27.0-31.0); MEAN CORPUSCULAR HGB CONC 33.5 % (33.0-36.5); MEAN CORPUSCULAR VOLUME 95.8 FL (78-98); MEAN PLATELET VOLUME 8.3 FL (7.4-10.4); MONOCYTES % (AUTO) 4.6 % (2-12); NEUTROPHILS # (AUTO) 18.6 X10'3 (1.8-7.7); NEUTROPHILS % (AUTO) 84.2 % (42-75); PLATELET COUNT 158 X10'3 (140-440); RED BLOOD COUNT 2.93 X10'6 (4.70-6.10); RED CELL DISTRIBUTION WIDTH 17.9 % (11.5-14.5); WHITE BLOOD COUNT 22.1 X10'3 (4.5-11.0)
[2017-12-31] MEDS: OCTREOTIDE 1,250 MCG in NS 250ml IV.SOLN IV SCH (04:53)
[2017-12-31 10:26] LABS: ANISOCYTOSIS 2+; PLATELET ESTIMATE NORMAL; TOTAL CELLS COUNTED 100
[2017-12-31 10:29] LABS: POIKILOCYTOSIS 1+; POLYCHROMASIA FEW
[2017-12-31 10:30] LABS: TOXIC VACUOLATION FEW
[2017-12-31 10:37] LABS: BURR CELLS 3+
[2017-12-31 10:38] LABS: LARGE PLATELETS FEW
[2017-12-31] MEDS ORDERED: OMEP20CA10 PO (12:17)
[2017-12-31] MEDS ORDERED: VERA240T PO (12:17)
[2017-12-31] MEDS ORDERED: ATOR10TA PO (12:18)
[2017-12-31] MEDS ORDERED: METO50TA7 PO (12:19)
[2017-12-31] MEDS ORDERED: UBID1CAP54 PO (12:20)
[2017-12-31] MEDS ORDERED: PSYL3.4P5 PO (12:20)
[2018-01-01] MEDS ORDERED: VANCOMYCIN LEVEL IV ONE (15:30)
[2018-01-04] MEDS ORDERED: methylnaltrexone br 12mg/0.6ml inj***SubQ only SQ SCH (08:00)
== END 2017-12-31 07:30 | disposition expired | DRG 710 ==
LOC: ER 12:09 → ED HOLD 13:59 → ICU 2S 15:03
PROVIDERS: ADMIT Internal Medicine Critical Care Medicine; ATTEND Internal Medicine Critical Care Medicine
PROC: 5A1935Z Respiratory Ventilation, Less than 24 Consecutive Hours (ICD-10-PCS; principal; 2017-12-30)
PROC: 04HY32Z Insertion of Monitoring Device into Lower Artery, Percutaneous Approach (ICD-10-PCS; 2017-12-30)
PROC: 5A12012 Performance of Cardiac Output, Single, Manual (ICD-10-PCS; 2017-12-30)
PROC: 0BH17EZ Insertion of Endotracheal Airway into Trachea, Via Natural or Artificial Opening (ICD-10-PCS; 2017-12-30)
PROC: 30233L1 Transfusion of Nonautologous Fresh Plasma into Peripheral Vein, Percutaneous Approach (ICD-10-PCS; 2017-12-30)
PROC: 30233N1 Transfusion of Nonautologous Red Blood Cells into Peripheral Vein, Percutaneous Approach (ICD-10-PCS; 2017-12-30)
PROC: 30233K1 Transfusion of Nonautologous Frozen Plasma into Peripheral Vein, Percutaneous Approach (ICD-10-PCS; 2017-12-30)
PROC: 02HV33Z Insertion of Infusion Device into Superior Vena Cava, Percutaneous Approach (ICD-10-PCS; 2017-12-30)
PROC: 0W3P8ZZ Control Bleeding in Gastrointestinal Tract, Via Natural or Artificial Opening Endoscopic (ICD-10-PCS; 2017-12-30)
PROC: 3E0G8GC Introduction of Other Therapeutic Substance into Upper GI, Via Natural or Artificial Opening Endoscopic (ICD-10-PCS; 2017-12-30)
DX: A41.9 Sepsis, unspecified organism (principal); J96.01 Acute respiratory failure with hypoxia; I46.9 Cardiac arrest, cause unspecified; R65.21 Severe sepsis with septic shock; N17.9 Acute kidney failure, unspecified; D68.9 Coagulation defect, unspecified; K76.6 Portal hypertension; E11.22 Type 2 diabetes mellitus with diabetic chronic kidney disease; K25.4 Chronic or unspecified gastric ulcer with hemorrhage; D62 Acute posthemorrhagic anemia; I12.9 Hypertensive chronic kidney disease with stage 1 through stage 4 chronic kidney disease, or unspecified chronic kidney disease; K29.80 Duodenitis without bleeding; K44.9 Diaphragmatic hernia without obstruction or gangrene; K74.60 Unspecified cirrhosis of liver; N18.9 Chronic kidney disease, unspecified; R04.0 Epistaxis; K72.90 Hepatic failure, unspecified without coma; Z59.0 Homelessness; Z88.1 Allergy status to other antibiotic agents; Z90.49 Acquired absence of other specified parts of digestive tract; Z79.899 Other long term (current) drug therapy
CPT/HCPCS: 36415; 36556; 36600; 71045; 71250; 74176; 80047; 80053; 82150; 82330; 82550; 82803; 82810; 82948; 83036; 83605; 83690; 83735; 83880; 84100; 84145; 84443; 84484; 85018; 85025; 85610; 86885; 86900; 86901; 86920; 87040; 87070; 87077; 87186; 93005; 93306; 94002; 94003; 94760; 96374; 99291; 99292; A6213; C1758; C9113; J0171; J1940; J1953; J2060; J2250; J2354; J2370; J2543; J3010; J3370; J3430; J3490; J7030; J7060; J7120; P9016; P9059